=== PATIENT | female | born 1950 | race Two or more races ===

== ENCOUNTER 2020-07-19 11:27 | Emergency (ER) | payer MEDICARE, MEDICAID, SELFPAY ==
--- NOTE | ~2020-07-19 | CT_ITS ---
EXAMINATION: NONCONTRAST HEAD CT NONCONTRAST MAXILLOFACIAL CT NONCONTRAST CERVICAL SPINE CT INDICATION INFORMATION: Fall with head/facial injury. Swelling to the right periorbital area. COMPARISON: None TECHNIQUE: Separate noncontrast CT examinations of the head, maxillofacial bones, and cervical spine were performed. Coronal and sagittal images were created for each examination at the technologist workstation. This CT examination was performed using dose optimization techniques as appropriate, variously including the following: *Automated exposure control *Adjustment of mA and/or kV according to patient size (this includes techniques or standardized protocols for targeted exams where dose is matched to indication/reason for exam; i.e. extremities or head) *Use of iterative reconstruction technique DLP: 1381 mGy-cm FINDINGS: Head: There is no evidence of acute intracranial hemorrhage or territorial infarction. No abnormal mass effect or midline shift is seen. Duff to white matter differentiation is well preserved. No extra-axial fluid collections are identified. No hydrocephalus. No significant volume loss. There is no abnormal attenuation within the brain parenchyma. No acute soft tissue abnormality. Hyperostosis frontalis interna. No calvarial fracture. The mastoid air cells are well aerated. Maxillofacial: Mild right periorbital soft tissue swelling. No acute maxillofacial fractures are seen. The pterygoid plates are intact. The lamina papyracea are intact. The zygomatic arches are intact. The orbital rims are intact. The frontal, maxillary, ethmoid, and sphenoid sinuses are well aerated. The uncinate process is normal bilaterally. The infundibula and middle meati are patent. The nasal septum deviates to the left. The mandibular heads are well-seated in the condylar fossa. Degenerative changes of both temporomandibular joints. The orbits demonstrate a normal appearance bilaterally. The globes are intact, and there are no suspicious findings to suggest retrobulbar hemorrhage. Cervical spine: There is anatomic alignment of the vertebral bodies and posterior elements. The atlantoaxial and atlantooccipital articulations are intact. Vertebral body heights are maintained. There is multilevel intervertebral disc space narrowing with endplate osteophyte formation and facet arthropathy. No evidence of acute fracture. No prevertebral soft tissue swelling. Visualized portions of the lung apices are unremarkable. The thyroid gland is unremarkable. CT/CT cervical spine wo IV con IMPRESSION: 1. No acute intracranial finding. 2. No acute cervical spine fracture. Mild degenerative change. 3. Right periorbital soft tissue swelling. No maxillofacial fracture.
[2020-07-19 12:01] VITALS: BP 148/77; PULSE 84; RESP 18; TEMP 37; O2SAT 99; BMI 29.1
--- NOTE | 2020-07-19 15:27 | ED_ITS ---
HPI - Fall General Chief Complaint: Fall Stated Complaint: FALL Time Seen by Provider: 07/19/20 13:41 Source: patient Mode of arrival: ambulatory Limitations: no limitations History of Present Illness complaint: fall Onset (ago): day(s) (Two days ago) Fall from: standing (While walking tripped on the uneven pavement) Fall witnessed: no Place fall occurred: street Loss of consciousness: none Prolonged down time: no Symptoms prior to fall: none Context: tripped/slipped Location of injury: head and face Related Data Home Medications Medication Instructions Recorded Confirmed evolocumab 140 mg/mL subcutaneous 140 mg SUBCUT Q2W 05/31/20 05/31/20 pen injector Previous Rx's Medication Instructions Recorded atorvastatin 80 mg tablet 80 mg PO BEDTIME 90 Days #90 tab 04/25/20 omeprazole 20 mg capsule,delayed 20 mg PO DAILY 90 Days #90 cap 04/25/20 release pioglitazone 30 mg tablet 30 mg PO DAILY 90 Days #90 tab 04/25/20 trazodone 50 mg tablet 50 mg PO BEDTIME PRN 90 Days #90 04/25/20 tab acetaminophen 500 mg tablet 500 mg PO Q6H PRN 30 Days #120 tab 05/31/20 oxycodone 5 mg PO BID PRN #10 tab 07/19/20 Allergies Allergy/AdvReac Type Severity Reaction Status Date / Time No Known Allergies Allergy Verified 07/19/20 12:01 Review of Systems Review of Systems: Constitutional : No changes in activity, No lethargy, No recent prior head injury, No agitation, No increased fussiness ENT/Mouth : No Ear Pain, No Nasal discharge/drainage Eyes: No Eye Pain, No Swelling, No Redness, No Foreign Body, No Vision Changes Cardiovascular : No Chest Pain, No SOB Respiratory : No Cough Gastrointestinal : No Nausea, No Vomiting, No abdominal Pain Genitourinary : No Dysuria, No Urinary Frequency, No Urinary Incontinence, No Urgency, No Flank Pain Musculoskeletal : +facial pain, No neck stiffness, No back pain/injury, No neck pain Skin : No lacerations Neuro : No unsteady gait, No Paresthesias, No Loss of Consciousness, No altered mental status, No Headache Yes all other systems are reviewed and are negative PMFSH Past Medical History Attestation statement: The following information was validated with the patient. Medical History Diabetes mellitus Familial hyperlipidemia GERD (gastroesophageal reflux disease) Insomnia Polyarthralgia Surgical History History of shoulder surgery History of tubal ligation Family History Family History Father No problems noted. Mother Diabetes Brother Diabetes Throat cancer Social History Social History Alcohol intake: never Smoking Status: Never smoker Advance Directives: No Advance Directives Information Provided: No Physical Exam Vital Signs: Vital Signs: Last Vital Signs Temp 98.6 F 07/19/20 12:01 Pulse 84 07/19/20 12:01 Resp 18 07/19/20 12:01 BP 148/77 H 07/19/20 12:01 Pulse Ox 99 07/19/20 12:01 Body Mass Index 29.1 Vital signs have been reviewed as normal and appeared to be correct. Blood pressure normal. Heart rate normal. Respiration rate normal. Temperature normal. Oxygen saturation normal. Appearance: Alert. Oriented X3. No acute distress. Head: Normal external exam. Normocephalic. Atraumatic. Able to rotate head bilaterally. No Shepard signs or raccoon eyes noted. Eyes: PERRLA. EOMI. No nystagmus noted. Right conjunctiva subconjunctival hemorrhage noted. Patient mild soft tissue swelling to right upper eyelid and right lower eyelid. Left Conjunctiva and sclera normal. Eyelids of the left eye are normal. Corneal reflex normal. ENT: EAC normal. TM's Normal. Hearing normal. Pharynx normal. Uvula midline. tongue midline. Moist mucous membranes. No trismus noted. No drooling noted. No muffled voice noted. No nystagmus noted. Neck: Normal inspection. Neck supple. FROM. No adenopathy. Trachea midline. Thyroid Normal. No meningeal signs. No neck mass noted. CVS: Normal heart rate and rhythm. Heart sound normal. No murmurs noted. Pulses normal throughout. Respiratory: No respiratory distress. Painless inspiration. Breath sounds normal. No wheezes/rales/rhonchi noted. Chest nontender. No accessory muscle usage noted or decreased air movement noted. Abdomen: Soft and nontender. Bowel sounds normal in all 4 quadrants. No distention noted. No organomegaly noted. No visible injury noted. Back: No CVA tenderness. Full range of motion noted. Skin: Skin warm and dry. Normal skin color. Normal skin turgor. No rashes/lesions/lacerations noted. Extremities: No lower extremity edema. Extremities exhibit normal range of motion. Extremities nontender. Able to shrug shoulders bilaterally and keep up against resistance. Neuro: Oriented X 3. No motor deficit. No sensory deficit. Reflexes normal. Moving all extremities. No focal motor deficits. Cranial nerves II-XI intact bilaterally. Facial strength normal. Normal cognition. Speech normal. Gait normal. Strength 5/5 throughout. Course Course Course Narrative: 69-year-old female presenting to the ED after she had a mechanical fall where she tripped and fell on the uneven pavement on Sunday with head injury no loss of conscious is not on any blood thinners with injuries to her head and right periorbital area. Patient is neuro intact. No focal neuro deficits noted. Denies any preceding symptoms prior to the fall. Imaging obtained and revealed periorbital soft tissue swelling otherwise no fractures or any other acute processes of the brain/cervical spine and facial bones. Will DC home with symptomatic treatment along with instructions return if any new or worsening symptoms follow-up with primary care provider. Patient understands agrees the plan. MDM - Fall Differential Diagnosis Differential diagnosis: Likely syncope, dislocation, fracture, compression fracture and concussion without loss of consciousness Medical Records Attestation: I reviewed the patient's medical records. Lab Data Attestation: I reviewed the patient's lab results. Imaging Data CT scan brain/cervical spine/facial bone: Attestation: I personally reviewed and interpreted this imaging study as follows: Radiologist's impression: FINDINGS: Head: There is no evidence of acute intracranial hemorrhage or territorial infarction. No abnormal mass effect or midline shift is seen. Duff to white matter differentiation is well preserved. No extra-axial fluid collections are identified. No hydrocephalus. No significant volume loss. There is no abnormal attenuation within the brain parenchyma. No acute soft tissue abnormality. Hyperostosis frontalis interna. No calvarial fracture. The mastoid air cells are well aerated. Maxillofacial: Mild right periorbital soft tissue swelling. No acute maxillofacial fractures are seen. The pterygoid plates are intact. The lamina papyracea are intact. The zygomatic arches are intact. The orbital rims are intact. The frontal, maxillary, ethmoid, and sphenoid sinuses are well aerated. The uncinate process is normal bilaterally. The infundibula and middle meati are patent. The nasal septum deviates to the left. The mandibular heads are well-seated in the condylar fossa. Degenerative changes of both temporomandibular joints. The orbits demonstrate a normal appearance bilaterally. The globes are intact, and there are no suspicious findings to suggest retrobulbar hemorrhage. Cervical spine: There is anatomic alignment of the vertebral bodies and posterior elements. The atlantoaxial and atlantooccipital articulations are intact. Vertebral body heights are maintained. There is multilevel intervertebral disc space narrowing with endplate osteophyte formation and facet arthropathy. No evidence of acute fracture. No prevertebral soft tissue swelling. Visualized portions of the lung apices are unremarkable. The thyroid gland is unremarkable. CT/CT facial bones wo con IMPRESSION: 1. No acute intracranial finding. 2. No acute cervical spine fracture. Mild degenerative change. 3. Right periorbital soft tissue swelling. No maxillofacial fracture. Discharge Plan Discharge Clinical Impression: Fall, Periorbital ecchymosis of right eye, Subconjunctival hemorrhage of right eye, Head injury Patient Disposition: Home, Self-Care Instructions: Subconjunctival Hemorrhage (ED), Fall Prevention for Older Adults (ED) Prescriptions: New oxycodone 5 mg tablet 5 mg PO BID PRN (Reason: pain) Qty: 10 RF: 0 No Action trazodone 50 mg tablet 50 mg PO BEDTIME PRN (Reason: sleep) 90 Days Qty: 90 RF: 1 pioglitazone 30 mg tablet 30 mg PO DAILY 90 Days Qty: 90 RF: 3 omeprazole 20 mg capsule,delayed release(DR/EC) 20 mg PO DAILY 90 Days Qty: 90 RF: 3 atorvastatin 80 mg tablet 80 mg PO BEDTIME 90 Days Qty: 90 RF: 3 Repatha SureClick 140 mg/mL pen injector 140 mg subcut Q2W RF: 0 acetaminophen 500 mg tablet 500 mg PO Q6H PRN (Reason: fever or pain) 30 Days Qty: 120 RF: 6 Referrals: Madhavi Zuniga MD [Primary Care Provider] - 2 days Print Language: Tamazight
== END 2020-07-19 16:04 | disposition home or self-care (01) ==
PROVIDERS: Emergency Provider Emergency Medicine; PCP Internal Medicine
DX: H11.31 Conjunctival hemorrhage, right eye (principal); S09.90XA Unspecified injury of head, initial encounter; S05.11XA Contusion of eyeball and orbital tissues, right eye, initial encounter; W01.198A Fall on same level from slipping, tripping and stumbling with subsequent striking against other object, initial encounter; E11.9 Type 2 diabetes mellitus without complications; Y93.01 Activity, walking, marching and hiking; Y92.480 Sidewalk as the place of occurrence of the external cause; Y99.9 Unspecified external cause status; Z79.4 Long term (current) use of insulin
CPT/HCPCS: 70450; 70486; 72125; 99283; 99284

== ENCOUNTER 2020-08-06 08:47 | Outpatient (REF) | payer MEDICARE, MEDICAID, SELFPAY ==
--- NOTE | ~2020-08-06 | MM_ITS ---
EXAMINATION: BONE DENSITOMETRY CLINICAL INDICATION: Menopause. COMPARISON: This is the patient's baseline examination. TECHNIQUE: Using a [employer] DXA System (software version: 13.1) manufactured by [employer], dual-energy x-ray absorptiometry was performed of the lumbar spine and left hip. The images are of good technical quality. Summary results are attached. FINDINGS: AP SPINE L1-L4: BMD 0.948 g/cm2, Z-score -0.7, T-score -1.9, osteopenia. LEFT FEMUR, NECK: BMD 0.804 g/cm2, Z-score -0.4, T-score -1.7, osteopenia. LEFT FEMUR, TOTAL: BMD 0.943 g/cm2, Z-score 0.5, T-score -0.5, normal. IDENTIFIED RISK FACTORS: Early menopause, secondary osteoporosis. HISTORY OF FRACTURE: None listed. MEDICATIONS: None listed. MM/XR DEXA axial skeleton IMPRESSION: 1. DIAGNOSIS: Osteopenia based on the lowest T-score value of -1.9 in the lumbar spine applying World Health Organization criteria. 2. 10-YEAR FRACTURE RISK PREDICTION, FRAX: Major osteoporotic fracture (clinical spine, forearm, hip or shoulder) 5.5%. Hip fracture 0.8%. 3. Treatment Recommendations: NOF guidelines recommend consideration for treatment in postmenopausal women and men age 50 and older presenting with the following: -A hip or vertebral (clinical or morphometric) fracture. -T-score less than or equal to -2.5 at the femoral neck or spine after appropriate evaluation to exclude secondary causes. -Low bone mass at the hip or spine and a 10-year fracture probability by FRAX of greater than or equal to 3% for hip fracture or greater than or equal to 20% for major osteoporotic fracture based on the [place] adapted WHO algorithm. 4. Other Recommendations: All treatment decisions require clinical judgment and consideration of individual patient factors, including patient preferences, comorbidities, previous drug use, risk factors not captured in the FRAX model (e.g. frailty, falls, vitamin D deficiency, increased bone turnover, interval significant decline in bone density) and possible under or overestimation of fracture risk by FRAX. Additional medical evaluation for secondary cause of low bone mineral density may be appropriate. FUTURE SCAN RECOMMENDATION: People with diagnosed cases of osteoporosis or at high risk for fracture should have regular bone mineral density tests. For patients eligible for Medicare, routine testing is allowed once every 2 years. The testing frequency can be increased to one year for patients who have rapidly progressing disease, those who are receiving or discontinuing medical therapy to restore bone mass, or have additional risk factors.
== END 2020-08-06 08:48 | disposition home or self-care (01) ==
LOC: HO.MAMMO 08:47
PROVIDERS: PCP Internal Medicine; Visit Provider Internal Medicine
DX: Z13.820 Encounter for screening for osteoporosis (principal); Z78.0 Asymptomatic menopausal state
CPT/HCPCS: 77080

== ENCOUNTER 2020-11-24 08:51 | Outpatient (REF) | payer MEDICARE, MEDICAID, SELFPAY ==
[2020-11-24 10:29] LABS: Estimated Average Glucose 117 mg/dL; Hemoglobin A1c % 5.7 %
[2020-11-24 10:43] LABS: Alanine Aminotransferase 22 U/L (0-31); Albumin Level 3.9 g/dL (3.5-5.0); Alkaline Phosphatase 72 U/L (39-117); Anion Gap 12 (12-20); Aspartate Amino Transferase 20 U/L (5-31); Bilirubin Total 0.5 mg/dL (0.0-1.0); Blood Urea Nitrogen 11 mg/dL (9-16); Calcium 9.4 mg/dL (8.4-10.2); Carbon Dioxide 27 mmol/L (22-29); Chloride 107 mmol/L (96-108); Cholesterol 217 mg/dL; Estimated Glomerular Filt Rate > 60; Glucose Fasting 126 mg/dL (60-99); HDL Cholesterol 40 mg/dL; LDL Cholesterol Calculated 156 mg/dl; Potassium 3.7 mmol/L (3.3-5.1); Sodium 142 mmol/L (135-145); Total Protein 6.7 g/dL (6.5-8.0); Triglycerides 105 mg/dL
[2020-11-24 10:45] LABS: Creatinine Urine 161.85 mg/dL; Microalbum/Creatinine Ratio Ur 30.8 ug/mg cr
[2020-11-29 13:31] LABS: Vitamin D 25-OH, D2 <4 ng/mL; Vitamin D 25-OH, D3 32 ng/mL; Vitamin D 25-OH, Total 32 ng/mL (30-100)
== END 2020-11-24 08:52 | disposition home or self-care (01) ==
LOC: HO.LAB 08:51
PROVIDERS: PCP Internal Medicine; Visit Provider Internal Medicine
DX: E11.9 Type 2 diabetes mellitus without complications (principal); E78.5 Hyperlipidemia, unspecified; E55.9 Vitamin D deficiency, unspecified
CPT/HCPCS: 36415; 80053; 80061; 82043; 82306; 83036

== ENCOUNTER 2020-11-30 08:59 | Outpatient (REF) | payer MEDICARE, MEDICAID, SELFPAY ==
--- NOTE | ~2020-11-30 | XR_ITS ---
EXAMINATION: XR KNEE, LEFT CLINICAL INFORMATION: Left knee pain COMPARISON: None TECHNIQUE: Four views of the left knee. FINDINGS: There is no evidence of acute fracture or dislocation of the left knee. Left knee joint spaces are maintained. There is some marginal spurring about the lateral facet of the patella. Patella spurs at insertion of the quadriceps tendon are seen. No effusion. XR/XR knee LT 3V IMPRESSION: Mild degenerative change patellofemoral joint.
== END 2020-11-30 09:00 | disposition home or self-care (01) ==
LOC: HO.XRAY 08:59
PROVIDERS: PCP Internal Medicine; Visit Provider Internal Medicine
DX: M25.562 Pain in left knee (principal)
CPT/HCPCS: 73562

== ENCOUNTER 2021-03-14 07:48 | Outpatient (REF) | payer MEDICARE, MEDICAID, SELFPAY ==
[2021-03-14 09:22] LABS: Alanine Aminotransferase 95 U/L (0-31); Albumin Level 3.9 g/dL (3.5-5.0); Alkaline Phosphatase 94 U/L (39-117); Anion Gap 9 (12-20); Aspartate Amino Transferase 69 U/L (5-31); Bilirubin Total 0.6 mg/dL (0.0-1.0); Blood Urea Nitrogen 11 mg/dL (9-16); Calcium 8.7 mg/dL (8.4-10.2); Carbon Dioxide 28 mmol/L (22-29); Chloride 106 mmol/L (96-108); Cholesterol 130 mg/dL; Estimated Glomerular Filt Rate > 60; Glucose Fasting 135 mg/dL (60-99); HDL Cholesterol 41 mg/dL; LDL Cholesterol Calculated 73 mg/dl; Potassium 3.7 mmol/L (3.3-5.1); Sodium 139 mmol/L (135-145); Total Protein 6.6 g/dL (6.5-8.0); Triglycerides 83 mg/dL
[2021-03-14 10:54] LABS: Creatinine Urine 140.83 mg/dL
== END 2021-03-14 07:49 | disposition home or self-care (01) ==
LOC: HO.LAB 07:48
PROVIDERS: PCP Internal Medicine; Visit Provider Internal Medicine
DX: E11.9 Type 2 diabetes mellitus without complications (principal); E78.5 Hyperlipidemia, unspecified
CPT/HCPCS: 36415; 80053; 80061; 82043

== ENCOUNTER 2021-04-22 09:20 | Outpatient (REF) | payer MEDICARE, MEDICAID, SELFPAY | END 2021-04-22 09:21 | disposition home or self-care (01) | LOC: HO.LAB 09:20 | PROVIDERS: Visit Provider Internal Medicine | DX: Z20.822 Contact with and (suspected) exposure to COVID-19 (principal) | CPT/HCPCS: C9803; U0003; U0005 ==

== ENCOUNTER 2021-08-08 07:30 | Outpatient (REF) | payer MEDICARE, MEDICAID, SELFPAY ==
[2021-08-08 08:45] LABS: Alanine Aminotransferase 19 U/L (0-31); Albumin Level 4.1 g/dL (3.5-5.0); Alkaline Phosphatase 76 U/L (39-117); Anion Gap 10 (12-20); Aspartate Amino Transferase 19 U/L (5-31); Bilirubin Total 0.5 mg/dL (0.0-1.0); Blood Urea Nitrogen 17 mg/dL (9-16); Calcium 9.6 mg/dL (8.4-10.2); Carbon Dioxide 28 mmol/L (22-29); Chloride 105 mmol/L (96-108); Cholesterol 145 mg/dL; Estimated Glomerular Filt Rate > 60; Glucose Fasting 107 mg/dL (60-99); HDL Cholesterol 42 mg/dL; LDL Cholesterol Calculated 82 mg/dl; Sodium 139 mmol/L (135-145); Total Protein 7.1 g/dL (6.5-8.0); Triglycerides 109 mg/dL
[2021-08-08 09:19] LABS: Creatinine Urine 144.12 mg/dL; Microalbum/Creatinine Ratio Ur 10.4 ug/mg cr
== END 2021-08-08 07:31 | disposition home or self-care (01) ==
LOC: HO.LAB 07:30
PROVIDERS: PCP Internal Medicine; Visit Provider Internal Medicine
DX: E11.9 Type 2 diabetes mellitus without complications (principal); E78.5 Hyperlipidemia, unspecified
CPT/HCPCS: 36415; 80053; 80061; 82043

== ENCOUNTER 2021-12-05 07:58 | Outpatient (REF) | payer MEDICARE, MEDICAID, SELFPAY ==
[2021-12-05 08:59] LABS: Alanine Aminotransferase 18 U/L (0-31); Albumin Level 3.9 g/dL (3.5-5.0); Alkaline Phosphatase 68 U/L (39-117); Anion Gap 8 (12-20); Aspartate Amino Transferase 17 U/L (5-31); Bilirubin Total 0.4 mg/dL (0.0-1.0); Blood Urea Nitrogen 15 mg/dL (9-16); Calcium 8.9 mg/dL (8.4-10.2); Carbon Dioxide 27 mmol/L (22-29); Chloride 108 mmol/L (96-108); Cholesterol 131 mg/dL; Estimated Glomerular Filt Rate > 60; Glucose Fasting 115 mg/dL (60-99); HDL Cholesterol 40 mg/dL; LDL Cholesterol Calculated 70 mg/dl; Sodium 139 mmol/L (135-145); Total Protein 6.7 g/dL (6.5-8.0); Triglycerides 106 mg/dL
[2021-12-05 09:35] LABS: Creatinine Urine 147.62 mg/dL; Microalbum/Creatinine Ratio Ur 7.4 ug/mg cr
== END 2021-12-05 07:59 | disposition home or self-care (01) ==
LOC: HO.LAB 07:58
PROVIDERS: PCP Internal Medicine; Visit Provider Internal Medicine
DX: E11.9 Type 2 diabetes mellitus without complications (principal); E78.5 Hyperlipidemia, unspecified; G43.909 Migraine, unspecified, not intractable, without status migrainosus
CPT/HCPCS: 36415; 80053; 80061; 82043

== ENCOUNTER 2022-04-03 08:02 | Outpatient (REF) | payer OTHER, SELFPAY ==
[2022-04-03 09:20] LABS: Creatinine Urine 126.49 mg/dL; Microalbum/Creatinine Ratio Ur 29.2 ug/mg cr
[2022-04-03 09:45] LABS: Alanine Aminotransferase 38 U/L (0-31); Alkaline Phosphatase 68 U/L (39-117); Anion Gap 10 (12-20); Aspartate Amino Transferase 29 U/L (5-31); Bilirubin Total 0.7 mg/dL (0.0-1.0); Blood Urea Nitrogen 22 mg/dL (9-16); Calcium 9.4 mg/dL (8.4-10.2); Carbon Dioxide 28 mmol/L (22-29); Chloride 105 mmol/L (96-108); Cholesterol 154 mg/dL; Estimated Glomerular Filt Rate > 60; Glucose Fasting 109 mg/dL (60-99); HDL Cholesterol 42 mg/dL; LDL Cholesterol Calculated 87 mg/dl; Potassium 4.1 mmol/L (3.3-5.1); Sodium 139 mmol/L (135-145); Triglycerides 125 mg/dL; Vitamin D 25-OH Total 38.7 ng/mL (>30)
== END 2022-04-03 08:03 | disposition home or self-care (01) ==
LOC: HO.LAB 08:02
PROVIDERS: PCP Internal Medicine; Visit Provider Internal Medicine
DX: I10 Essential (primary) hypertension (principal); E11.9 Type 2 diabetes mellitus without complications; E55.9 Vitamin D deficiency, unspecified; M85.80 Other specified disorders of bone density and structure, unspecified site; E78.5 Hyperlipidemia, unspecified
CPT/HCPCS: 36415; 80053; 80061; 82043; 82306

== ENCOUNTER 2022-07-24 08:18 | Outpatient (REF) | payer OTHER, SELFPAY ==
--- NOTE | ~2022-07-24 | XR_ITS ---
EXAMINATION: XR KNEE, LEFT CLINICAL INFORMATION: 71-year-old female patient with pain in the left knee. COMPARISON: X-ray of the left knee on 11/30/2020. TECHNIQUE: AP and lateral views of the left knee. FINDINGS: Bones and soft tissues are normal. No fracture or joint effusion. Alignment is anatomic. Joint spaces are well maintained. A small bony spur arises from the articular surface of the lateral femoral condyle. No abnormal soft tissue calcification. Again, an enthesophyte arises from the patella at the quadriceps insertion site. XR/XR knee LT 2V IMPRESSION: No acute bone or joint abnormalities. Small bony spur.
[2022-07-24 09:13] LABS: Alanine Aminotransferase 19 U/L (0-31); Albumin Level 3.9 g/dL (3.5-5.0); Alkaline Phosphatase 68 U/L (39-117); Anion Gap 10 (12-20); Aspartate Amino Transferase 24 U/L (5-31); Blood Urea Nitrogen 11 mg/dL (9-16); Calcium 8.8 mg/dL (8.4-10.2); Carbon Dioxide 27 mmol/L (22-29); Chloride 107 mmol/L (96-108); Cholesterol 148 mg/dL; Estimated Glomerular Filt Rate > 60; Glucose Fasting 113 mg/dL (60-99); HDL Cholesterol 33 mg/dL; LDL Cholesterol Calculated 91 mg/dl; Potassium 4.1 mmol/L (3.3-5.1); Sodium 140 mmol/L (135-145); Total Protein 6.6 g/dL (6.5-8.0); Triglycerides 123 mg/dL
[2022-07-24 09:31] LABS: Vitamin D 25-OH Total 28.5 ng/mL (>30)
[2022-07-24 10:22] LABS: Creatinine Urine 141.92 mg/dL
== END 2022-07-24 08:19 | disposition home or self-care (01) ==
LOC: HO.XRAY 08:18
PROVIDERS: PCP Internal Medicine; Visit Provider Internal Medicine
DX: E78.5 Hyperlipidemia, unspecified (principal); E11.9 Type 2 diabetes mellitus without complications; E55.9 Vitamin D deficiency, unspecified; M25.562 Pain in left knee; I10 Essential (primary) hypertension
CPT/HCPCS: 36415; 73560; 80053; 80061; 82043; 82306

== ENCOUNTER 2022-08-23 08:03 | Outpatient (REF) | payer MEDICARE, SELFPAY ==
--- NOTE | ~2022-08-23 | MM_ITS ---
EXAMINATION: BONE DENSITOMETRY CLINICAL INDICATION: Unspecified menopausal and perimenopausal disorder. COMPARISON: Baseline BD dated 08/06/2020. TECHNIQUE: Using a [employer] DXA System (software version: 13.1) manufactured by [employer], dual-energy x-ray absorptiometry was performed of the lumbar spine and left hip. The images are of good technical quality. Summary results are attached. FINDINGS: AP SPINE L1-L4: Current: BMD 0.980 g/cm2, Z-score -0.5, T-score -1.7, osteopenia, 3.4% increase from baseline (<5% change is not significant). Baseline: BMD 0.948 g/cm2. LEFT FEMUR, NECK: Current: BMD 0.751 g/cm2, Z-score -0.7, T-score -2.1, osteopenia. Baseline: BMD 0.804 g/cm2. LEFT FEMUR, TOTAL: Current: BMD 0.839 g/cm2, Z-score -0.2, T-score -1.3, osteopenia, 11.0% decrease from baseline (<5% change is not significant). Baseline: BMD 0.943 g/cm2. IDENTIFIED RISK FACTORS: Early menopause, secondary osteoporosis. HISTORY OF FRACTURE: None listed. MEDICATIONS: Calcium supplements or multivitamin, vitamin D. MM/XR DEXA axial skeleton IMPRESSION: 1. DIAGNOSIS: Osteopenia based on the lowest T-score value of -2.1 in the femoral neck applying World Health Organization criteria. 2. 10-YEAR FRACTURE RISK PREDICTION, FRAX: Major osteoporotic fracture (clinical spine, forearm, hip or shoulder) 6.6%. Hip fracture 1.3%. 3. Treatment Recommendations: NOF guidelines recommend consideration for treatment in postmenopausal women and men age 50 and older presenting with the following: -A hip or vertebral (clinical or morphometric) fracture. -T-score less than or equal to -2.5 at the femoral neck or spine after appropriate evaluation to exclude secondary causes. -Low bone mass at the hip or spine and a 10-year fracture probability by FRAX of greater than or equal to 3% for hip fracture or greater than or equal to 20% for major osteoporotic fracture based on the [place] adapted WHO algorithm. 4. Other Recommendations: All treatment decisions require clinical judgment and consideration of individual patient factors, including patient preferences, comorbidities, previous drug use, risk factors not captured in the FRAX model (e.g. frailty, falls, vitamin D deficiency, increased bone turnover, interval significant decline in bone density) and possible under or overestimation of fracture risk by FRAX. Additional medical evaluation for secondary cause of low bone mineral density may be appropriate. FUTURE SCAN RECOMMENDATION: People with diagnosed cases of osteoporosis or at high risk for fracture should have regular bone mineral density tests. For patients eligible for Medicare, routine testing is allowed once every 2 years. The testing frequency can be increased to one year for patients who have rapidly progressing disease, those who are receiving or discontinuing medical therapy to restore bone mass, or have additional risk factors.
== END 2022-08-23 08:04 | disposition home or self-care (01) ==
LOC: HO.MAMMO 08:03
PROVIDERS: PCP Internal Medicine; Visit Provider Internal Medicine
DX: Z13.820 Encounter for screening for osteoporosis (principal); N95.9 Unspecified menopausal and perimenopausal disorder
CPT/HCPCS: 77080

== ENCOUNTER 2022-11-27 08:57 | Outpatient (REF) | payer MEDICARE, SELFPAY ==
[2022-11-27 10:33] LABS: Creatinine Urine 134.61 mg/dL; Microalbum/Creatinine Ratio Ur 11.8 ug/mg cr
[2022-11-27 10:41] LABS: Alanine Aminotransferase 18 U/L (0-31); Albumin Level 3.8 g/dL (3.5-5.0); Alkaline Phosphatase 60 U/L (39-117); Anion Gap 10 (12-20); Aspartate Amino Transferase 21 U/L (5-31); Bilirubin Total 0.6 mg/dL (0.0-1.0); Blood Urea Nitrogen 14 mg/dL (9-16); Calcium 9.4 mg/dL (8.4-10.2); Carbon Dioxide 28 mmol/L (22-29); Chloride 105 mmol/L (96-108); Cholesterol 119 mg/dL; Estimated Glomerular Filt Rate > 60; Glucose Fasting 97 mg/dL (60-99); HDL Cholesterol 40 mg/dL; LDL Cholesterol Calculated 62 mg/dl; Sodium 139 mmol/L (135-145); Total Protein 6.8 g/dL (6.5-8.0); Triglycerides 86 mg/dL
[2022-11-27 10:57] LABS: Vitamin D 25-OH Total 37.4 ng/mL (>30)
== END 2022-11-27 08:58 | disposition home or self-care (01) ==
LOC: HO.LAB 08:57
PROVIDERS: PCP Internal Medicine; Visit Provider Internal Medicine
DX: E78.49 Other hyperlipidemia (principal); E11.9 Type 2 diabetes mellitus without complications; E55.9 Vitamin D deficiency, unspecified; E78.5 Hyperlipidemia, unspecified
CPT/HCPCS: 36415; 80053; 80061; 82043; 82306

== ENCOUNTER 2022-12-18 10:28 | Outpatient (AMB) | payer MEDICARE, SELFPAY ==
[2022-12-18 10:37] VITALS: BP 118/66; PULSE 76; O2SAT 99; BMI 29.2
--- NOTE | 2022-12-18 10:37 | A.OFFPC_ITS ---
Vital Signs 12/18/22 10:37 Height 5 ft 5 in Weight 175 lb 4 oz BMI 29.2 BP 118/66 Blood Pressure Location Lt brachial Position Sitting Pulse 76 Pulse Source Pulse Oximeter Pulse Oximetry (%) 99 Oxygen Delivery Method Room Air Intake Visit Reasons: DM Lawn Care Worker Required: No Accompanied by: Self / Same As Patient Allergies No Known Allergies Allergy (Verified 12/18/22 11:04) Medication List - Last Reconciled 12/18/22 by Madhavi Mujica MD atorvastatin 80 mg PO BEDTIME 90 days blood-glucose meter (FreeStyle [place] Lite kit) As directed calcium carbonate-vitamin D3 600 mg-10 mcg (400 unit) 1 tab PO BID 90 days ezetimibe 10 mg PO DAILY 90 days gabapentin 100 mg PO BEDTIME 30 days ibuprofen 800 mg PO Q8H 90 days lisinopril 10 mg PO DAILY 90 days omeprazole 20 mg PO DAILY 90 days pioglitazone 45 mg PO DAILY 90 days sumatriptan succinate 25 mg PO Q2-4H PRN 30 days trazodone 50 mg PO BEDTIME PRN 90 days Tobacco use date assessed: 12/18/22 Fall risk assessment: No Falls in past year Last assessed Fall Risk: 12/18/22 Dental Screening Dental Screen Date: 12/18/22 Did you have a dental visit in the last 12 months?: No Did you have a dental problem in the last 6 months where you did not have access to dental care?: No Was dental information given to patient?: Patient has dentist HPI HPI Comments History of Present Illness Details This is a 72-year-old female with diabetes mellitus type 2, hypertension, familial hyperlipidemia and insomnia that comes today for follow- up on her conditions. A1c within goal. LDL within goal. Blood pressure well control. Insomnia stable with trazodone as needed. She denies any chest pain or shortness of breath. Compliant with medications. [facility] Medical History Diabetes mellitus Essential hypertension Familial hyperlipidemia GERD (gastroesophageal reflux disease) Insomnia Left knee pain Migraines Osteopenia Polyarthralgia Postmenopausal Surgical History History of shoulder surgery History of tubal ligation Family History Father No problems noted. Mother Diabetes Brother Diabetes Throat cancer Social History Housing: Apartment Alcohol intake: never Patient Tobacco Use Status: Never used Tobacco e-Cigarette/Vaping Use: Never Used Second Hand Smoke Exposure: No service: No Current occupational status: disabled Current occupational exposures/hazards: No Cognitive needs: No Hearing needs: No Vision needs: Yes Questionnaire PHQ-9 Over the last 2 weeks, how often have you been bothered by any of the following problems? 1. Little interest or pleasure in doing things: not at all 2. Feeling down, depressed, or hopeless: not at all 3. Trouble falling or staying asleep, or sleeping too much: not at all 4. Feeling tired or having little energy: not at all 5. Poor appetite or overeating: not at all 6. Feeling bad about yourself - or that you are a failure or have let yourself or your family down: not at all 7. Trouble concentrating on things, such as reading the newspaper or watching television: not at all 8. Moving or speaking so slowly that other people could have noticed. Or the opposite - being so fidgety or restless that you have been moving around a lot more than usual: not at all 9. Thoughts that you would be better off or of hurting yourself in some way: not at all Total score: 0 Depression Screening Interpretation: Negative 41505 - PHQ-9 Billing: Yes Source: Developed by Drs. Nahid Garcia, Alexia Pollock, Flavio Torrez and colleagues, with an educational em from [employer]. Thrive Questionnaire Date Thrive assessed: 12/18/22 I am a: Patient What is your living situation today?: I have a steady place to live Within the past 12 months, did the food you bought not last and you didn't have the money to get more?: Never true Within the past 12 months, did you worry whether your food would run out before you got money to buy more?: Never true Do you have trouble paying for medicines?: No Do you have trouble getting transportation to medical appointments?: No Do you have trouble paying your heating and electricity bill?: No Do you have trouble taking care of your child, family member or friend?: No Do you have trouble with day-to-day activities such as bathing, preparing meals, shopping, managing finances, etc.?: No Are you currently unemployed and looking for a job?: No Are you interested in more education?: No Please select the resources that you would like help with: None Currently or been in a relationship where the following occur: no concerns reported AUDIT C Alcohol Use Questionnaire (AUDIT-C) 1. How often do you have a drink containing alcohol?: Never Total Score: 0 SUSAN-7 AMB Questionnaire SUSAN-7 Date SUSAN - 7 assessed: 12/18/22 Feeling nervous, anxious, or on edge: 0 = Not at all Not being able to stop or control worryin = Not at all Worrying too much about different things: 0 = Not at all Trouble relaxin = Not at all Being so restless that it is hard to sit still: 0 = Not at all Becoming easily annoyed or irritable: 0 = Not at all Feeling afraid as if something awful might happen: 0 = Not at all Total SUSAN-7 score (0-4 normal; 5-9 mild; 10-14 moderate; 15-21 severe): 0 Source: Developed by Drs. Nahid Garcia, Alexia Pollock, Flavio Torrez and colleagues, with an educational em from [employer]. SUSAN-7 Assessment Billing SUSAN-7 Assessment Tool: SUSAN-7 Assessment 01994 Review of Systems Const All systems reviewed & are unremarkable except as noted in HPI and below Eyes Reports no additional complaints, Denies change in vision and Denies other visual disturbances Card Denies chest pain at rest, Denies chest pain with activity, Denies edema, Denies irregular heart rhythm, Denies claudication, Denies dyspnea, Denies dyspnea on exertion, Denies orthopnea, Denies paroxysmal nocturnal dyspnea and Denies slow heart rate Resp Denies cough, Denies dyspnea and Denies dyspnea on exertion GI Denies abdominal pain, Denies change in bowel habits, Denies excessive flatus, Denies nausea and Denies vomiting Denies urinary incontinence, Denies urinary hesitancy and Denies urinary urgency Musc Denies abnormal gait, Denies atrophy, Denies deformity and Denies limited range of motion Skin/Breast Denies bleeding lesions, Denies changing lesions and Denies rash Neuro Denies abnormal gait and Denies lack of coordination Physical exam (Primary Care) Vital Signs: Last Vital Signs Pulse 76 12/18/22 10:37 BP 118/66 12/18/22 10:37 Pulse Ox 99 12/18/22 10:37 Oxygen Delivery Method Room Air 12/18/22 10:37 BMI result Body Mass Index 29.2 Tobacco/Smoking Status: Tobacco use Status Tobacco use date assessed 12/18/22 12/18/22 10:41 Patient Tobacco Use Status Never used Tobacco 12/18/22 10:41 e-Cigarette/Vaping Use Never Used 12/18/22 10:41 PHQ-9: PHQ-9 Score PHQ-9: Total score 0 12/18/22 11:06 Depression Screening Interpretation: Negative Thrive Assessment: Date of Thrive Assessment Date Thrive assessed 12/18/22 12/18/22 10:41 Currently or been in a relationship where the following occur: no concerns reported Eyes General: appearance normal, both eyes and all related structures Eyelids: Yes eyelids normal Conjunctivae: conjunctivae normal Neck Neck: Yes normal visual inspection and Yes supple Resp Effort & Inspection: normal respiratory effort Auscultation: clear to auscultation bilaterally Cardio Jugular venous distension: no JVD Rate: regular rate Rhythm: regular rhythm Heart sounds: S1 normal heart sound present and S2 normal heart sound present Extrem General: Yes full ROM Results AMB Hemoglobin A1c AMB Hemoglobin A1c 5.7 % Last Edit by Thelma Mclean on 12/18/22 10:57 Results Reviewed Results Reviewed: Laboratory Last Values Hgb A1c (Clinic) 5.7 % (4.0-6.0) 12/18/22 10:56 Assessment and Plan Assessment & Plan (1) Essential hypertension: Code(s): I10 - Essential (primary) hypertension Plan: Continue lisinopril. Blood pressure goal is equal or less than 130/80. (2) Diabetes mellitus: Code(s): E11.9 - Type 2 diabetes mellitus without complications Qualifiers: Diabetes mellitus type: type 2 Diabetes mellitus intermediate card tender insulin use: without intermediate card tender use Diabetes mellitus complication status: without complication Qualified Code(s): E11.9 - Type 2 diabetes mellitus without complications Plan: Continue Actos. A1c goal is equal or less than 7%. (3) Familial hyperlipidemia: Code(s): E78.49 - Other hyperlipidemia Plan: Continue statins and ezetimibe. LDL goal is less than 70. (4) Insomnia: Code(s): G47.00 - Insomnia, unspecified Qualifiers: Insomnia type: unspecified Qualified Code(s): G47.00 - Insomnia, unspecified Plan: Continue trazodone as needed. Orders: Orders Comprehensive [place]. Panel Fast 4 Months I10 - Essential (primary) hypertension Lipid Panel 4 Months E78.5 - Hyperlipidemia, unspecified Vitamin D 25-OH Total 4 Months E55.9 - Vitamin D deficiency, unspecified Microalbumin, Random (w Creat) 4 Months E11.9 - Type 2 diabetes mellitus without complications Coding Level of Care Code Est Pt Level 4 (29345) Diagnoses Essential hypertension I10 Diabetes mellitus E11.9 Diabetes mellitus type: type 2 Diabetes mellitus residential insulin use: without intermediate card tender use Diabetes mellitus complication status: without complication Familial hyperlipidemia E78.49 Insomnia G47.00 Insomnia type: unspecified Additional Codes SUSAN-7 Assessment Billing - SUSAN-7 Assessment Tool: SUSAN-7 Assessment 67838 ([id number]) Time Spent (min) 23
== END 2022-12-18 11:12 | disposition home or self-care (01) ==
PROVIDERS: Visit Provider Internal Medicine
DX: I10 Essential (primary) hypertension (principal); E11.9 Type 2 diabetes mellitus without complications; E78.49 Other hyperlipidemia; G47.00 Insomnia, unspecified
CPT/HCPCS: 99214

== ENCOUNTER 2023-03-27 08:01 | Outpatient (REF) | payer MEDICARE, SELFPAY ==
[2023-03-27 09:22] LABS: Alanine Aminotransferase 21 U/L (0-31); Albumin Level 3.8 g/dL (3.5-5.0); Alkaline Phosphatase 86 U/L (39-117); Anion Gap 9 (12-20); Aspartate Amino Transferase 22 U/L (5-31); Bilirubin Total 0.6 mg/dL (0.0-1.0); Blood Urea Nitrogen 14 mg/dL (9-16); Calcium 9.3 mg/dL (8.4-10.2); Carbon Dioxide 28 mmol/L (22-29); Chloride 108 mmol/L (96-108); Cholesterol 112 mg/dL (<200); Estimated Glomerular Filt Rate > 60; Glucose Fasting 101 mg/dL (60-99); HDL Cholesterol 34 mg/dL (>40); LDL Cholesterol Calculated 63 mg/dL (<100); Potassium 3.9 mmol/L (3.3-5.1); Sodium 141 mmol/L (135-145); Total Protein 6.9 g/dL (6.5-8.0); Triglycerides 79 mg/dL (<150)
[2023-03-27 09:25] LABS: Microalbum/Creatinine Ratio Ur 9.7 ug/mg cr (<30)
== END 2023-03-27 08:02 | disposition home or self-care (01) ==
LOC: HO.LAB 08:01
PROVIDERS: PCP Internal Medicine; Visit Provider Internal Medicine
DX: E78.5 Hyperlipidemia, unspecified (principal); E55.9 Vitamin D deficiency, unspecified; I10 Essential (primary) hypertension; E11.9 Type 2 diabetes mellitus without complications
CPT/HCPCS: 36415; 80053; 80061; 82043; 82306; 82570

== ENCOUNTER 2023-04-23 09:24 | Outpatient (AMB) | payer MEDICARE, SELFPAY ==
--- NOTE | 2023-04-23 09:37 | MHC.PC.OV ---
Vital Signs 04/23/23 09:39 Height 5 ft 5 in Weight 172 lb 6 oz BMI 28.7 BP 118/60 Blood Pressure Location Lt brachial Position Sitting Pulse 70 Pulse Source Palpation Intake Visit Reasons: dm Assistant Spa Manager Required: No Accompanied by: Self / Same As Patient Allergies No Known Allergies Allergy (Verified 04/23/23 09:49) Medication List - Last Reconciled 04/23/23 by Madhavi Mujica MD atorvastatin 80 mg PO BEDTIME 90 days blood-glucose meter (FreeStyle [place] Lite kit) As directed calcium carbonate-vitamin D3 600 mg-10 mcg (400 unit) 1 tab PO BID 90 days ezetimibe 10 mg PO DAILY 90 days gabapentin 100 mg PO BEDTIME 30 days ibuprofen 800 mg PO Q8H 90 days lisinopril 10 mg PO DAILY 90 days omeprazole 20 mg PO DAILY 90 days pioglitazone 45 mg PO DAILY 90 days sumatriptan succinate 25 mg PO Q2-4H PRN 30 days trazodone 50 mg PO BEDTIME PRN 90 days Tobacco use date assessed: 12/18/22 Fall risk assessment: No Falls in past year Last assessed Fall Risk: 04/23/23 Dental Screening Dental Screen Date: 04/23/23 Did you have a dental visit in the last 12 months?: Yes Did you have a dental problem in the last 6 months where you did not have access to dental care?: No Was dental information given to patient?: Patient has dentist HPI HPI Comments History of Present Illness Details This is a 72-year-old female with diabetes mellitus type 2, hypertension, familial hyperlipidemia and GERD that comes today for follow-up on her conditions. A1c within goal. Blood pressure stable. LDL within goal. GERD well controlled with PPIs as needed. No chest pain or shortness of breath. [facility] Medical History Migraines Left knee pain Osteopenia Essential hypertension Postmenopausal Insomnia Polyarthralgia Familial hyperlipidemia GERD (gastroesophageal reflux disease) Diabetes mellitus Surgical History History of shoulder surgery History of tubal ligation Family History Father No problems noted. Mother Diabetes Brother Diabetes Throat cancer Social History Housing: Apartment Alcohol intake: never Patient Tobacco Use Status: Never used Tobacco e-Cigarette/Vaping Use: Never Used Second Hand Smoke Exposure: No service: No Current occupational status: disabled Current occupational exposures/hazards: No Cognitive needs: No Hearing needs: No Vision needs: Yes Questionnaire Thrive Questionnaire Date Thrive assessed: 12/18/22 SUSAN-7 AMB Questionnaire SUSAN-7 Date SUSAN - 7 assessed: 12/18/22 Source: Developed by Drs. Nahid Garcia, Alexia Pollock, Flavio Torrez and colleagues, with an educational em from [employer]. Review of Systems Const All systems reviewed & are unremarkable except as noted in HPI and below Eyes Reports no additional complaints, Denies change in vision and Denies other visual disturbances Card Denies chest pain at rest, Denies chest pain with activity, Denies edema, Denies irregular heart rhythm, Denies claudication, Denies dyspnea, Denies dyspnea on exertion, Denies orthopnea, Denies paroxysmal nocturnal dyspnea and Denies slow heart rate Resp Denies cough, Denies dyspnea and Denies dyspnea on exertion GI Denies abdominal pain, Denies change in bowel habits, Denies excessive flatus, Denies nausea and Denies vomiting Denies urinary incontinence, Denies urinary hesitancy and Denies urinary urgency Musc Denies abnormal gait, Denies atrophy, Denies deformity and Denies limited range of motion Skin/Breast Denies bleeding lesions, Denies changing lesions and Denies rash Neuro Denies abnormal gait, Denies behavioral changes and Denies lack of coordination Psych Denies behavioral changes Physical exam (Primary Care) Vital Signs: Last Vital Signs Pulse 70 04/23/23 09:39 BP 118/60 04/23/23 09:39 BMI result Body Mass Index 28.7 Tobacco/Smoking Status: Tobacco use Status Tobacco use date assessed 12/18/22 04/23/23 09:37 Patient Tobacco Use Status Never used Tobacco 04/23/23 09:37 e-Cigarette/Vaping Use Never Used 04/23/23 09:37 Thrive Assessment: Date of Thrive Assessment Date Thrive assessed 12/18/22 04/23/23 09:37 Eyes General: appearance normal, both eyes and all related structures Eyelids: Yes eyelids normal Conjunctivae: conjunctivae normal Neck Neck: Yes normal visual inspection and Yes supple Resp Effort & Inspection: normal respiratory effort Auscultation: clear to auscultation bilaterally Cardio Jugular venous distension: no JVD Rate: regular rate Rhythm: regular rhythm Heart sounds: S1 normal heart sound present and S2 normal heart sound present Extrem General: Yes full ROM Office Procedures Flu Questionnaire Does the patient have a severe egg allergy?: No Does the patient have severe life threatening allergies?: No Does the patient have a fever or illness today?: No Has the patient ever had Guillain-[place] Syndrome?: No Has the patient ever had any past reaction to a flu shot?: No Results AMB Hemoglobin A1c AMB Hemoglobin A1c 6.3 % Last Edit by REAL Franklin on 04/23/23 09:47 Immunizations flu vacc [id number] 6mos up(PF) 60 mcg(15 mcgx4)/0.5 mL IM syringe Performing Provider: Madhavi Mujica MD Performing Location: [facility] Administered by: REAL Franklin on 04/23/23 10:04 Dose Route Admin Location Dispensed Lot Number Expiration Date NDC Business Operations Coordinator 0.5 mL IM Left Deltoid 0.5 mL [id number] 11/11/23 18146-020-26 [employer] VIS Given Date VIS Provided VIS Publication Date 04/23/23 Single Vaccine 20 Eligibility Eligibility Date Funding Source Not VFC Eligible 04/23/23 Private Results Reviewed Results Reviewed: Laboratory Last Values Hgb A1c (Clinic) 6.3 % (4.0-6.0) H 04/23/23 09:36 Assessment and Plan Assessment & Plan (1) Diabetes mellitus: Code(s): E11.9 - Type 2 diabetes mellitus without complications Qualifiers: Diabetes mellitus type: type 2 Diabetes mellitus terminal make up operator insulin use: without fdc use Diabetes mellitus complication status: without complication Qualified Code(s): E11.9 - Type 2 diabetes mellitus without complications Plan: Continue Actos. A1c goal is equal or less than 7%. (2) GERD (gastroesophageal reflux disease): Code(s): K21.9 - Gastro-esophageal reflux disease without esophagitis Qualifiers: Esophagitis presence: esophagitis presence not specified Qualified Code(s): K21.9 - Gastro-esophageal reflux disease without esophagitis Plan: Continue PPIs as needed. (3) Familial hyperlipidemia: Code(s): E78.49 - Other hyperlipidemia Plan: Continue statins and Zetia. LDL goal is less than 70. (4) Essential hypertension: Code(s): I10 - Essential (primary) hypertension Plan: Continue lisinopril. Blood pressure goal is equal or less than 130/80. Orders: Orders Comprehensive [place]. Panel Fast 4 Months I10 - Essential (primary) hypertension AMB Hemoglobin A1c Today E11.9 - Type 2 diabetes mellitus without complications Influenza [id number] Immunization Today Z23 - Encounter for immunization Lipid Panel 4 Months E78.5 - Hyperlipidemia, unspecified Microalbumin, Random (w Creat) 4 Months E11.9 - Type 2 diabetes mellitus without complications Vitamin D 25-OH Total 4 Months E55.9 - Vitamin D deficiency, unspecified Medications: Refilled pioglitazone 45 mg PO DAILY 90 days 90 tabs 1RF Coding Level of Care Code Est Pt Level 4 (83538) Diagnoses Type 2 diabetes mellitus without complication, without long-term current use of insulin E11.9 Diabetes mellitus type: type 2 Diabetes mellitus fdc insulin use: without terminal make up operator use Diabetes mellitus complication status: without complication Gastroesophageal reflux disease, unspecified whether esophagitis present K21.9 Esophagitis presence: esophagitis presence not specified Familial hyperlipidemia E78.49 Essential hypertension I10 Time Spent (min) 23
[2023-04-23 09:39] VITALS: BP 118/60; PULSE 70; BMI 28.7
== END 2023-04-23 10:03 | disposition home or self-care (01) ==
PROVIDERS: PCP Internal Medicine; Visit Provider Internal Medicine
DX: E11.9 Type 2 diabetes mellitus without complications (principal); K21.9 Gastro-esophageal reflux disease without esophagitis; E78.49 Other hyperlipidemia; I10 Essential (primary) hypertension; Z23 Encounter for immunization
CPT/HCPCS: 83036; 90471; 90686; 99214

== ENCOUNTER 2023-07-31 08:25 | Outpatient (REF) | payer MEDICARE, SELFPAY ==
[2023-07-31 09:55] LABS: Creatinine Urine 136.92 mg/dL; Microalbum/Creatinine Ratio Ur 9.4 ug/mg cr (<30)
[2023-07-31 10:11] LABS: Alanine Aminotransferase 20 U/L (0-31); Albumin Level 3.8 g/dL (3.5-5.0); Alkaline Phosphatase 72 U/L (39-117); Anion Gap 9 (12-20); Aspartate Amino Transferase 24 U/L (5-31); Blood Urea Nitrogen 16 mg/dL (9-16); Calcium 9.5 mg/dL (8.4-10.2); Carbon Dioxide 29 mmol/L (22-29); Chloride 107 mmol/L (96-108); Cholesterol 120 mg/dL (<200); Estimated Glomerular Filt Rate > 60; Glucose Fasting 97 mg/dL (60-99); HDL Cholesterol 41 mg/dL (>40); LDL Cholesterol Calculated 63 mg/dL (<100); Potassium 3.8 mmol/L (3.3-5.1); Sodium 141 mmol/L (135-145); Total Protein 6.9 g/dL (6.5-8.0); Triglycerides 84 mg/dL (<150)
[2023-07-31 10:23] LABS: Vitamin D 25-OH Total 29.4 ng/mL (>30)
[2023-07-31 11:23] LABS: Bilirubin Total 0.6 mg/dL (0.0-1.0)
== END 2023-07-31 08:26 | disposition home or self-care (01) ==
LOC: HO.LAB 08:25
PROVIDERS: PCP Internal Medicine; Visit Provider Internal Medicine
DX: I10 Essential (primary) hypertension (principal); E78.5 Hyperlipidemia, unspecified; E11.9 Type 2 diabetes mellitus without complications; E55.9 Vitamin D deficiency, unspecified
CPT/HCPCS: 36415; 80053; 80061; 82043; 82306; 82570

== ENCOUNTER 2023-08-27 13:49 | Outpatient (AMB) | payer MEDICARE, SELFPAY ==
[2023-08-27 13:52] VITALS: BP 122/70; BMI 28.8
--- NOTE | 2023-08-27 13:52 | MHC.PC.OV ---
Vital Signs 08/27/23 13:52 Height 5 ft 5 in Weight 173 lb BMI 28.8 BP 122/70 Blood Pressure Location Lt brachial Position Sitting Intake Visit Reasons: physical exam - see comments Intake Note: Patient here for a physical exam Child Care Cook Required: No Accompanied by: Self / Same As Patient Allergies No Known Allergies Allergy (Verified 08/27/23 14:09) Medication List - Last Reconciled 08/27/23 by Madhavi Mujica MD atorvastatin 80 mg PO BEDTIME 90 days blood-glucose meter (FreeStyle [place] Lite kit) As directed calcium carbonate-vitamin D3 600 mg-10 mcg (400 unit) 1 tab PO BID 90 days ezetimibe 10 mg PO DAILY 90 days gabapentin 100 mg PO BEDTIME 30 days ibuprofen 800 mg PO Q8H 90 days lisinopril 10 mg PO DAILY 90 days omeprazole 20 mg PO DAILY 90 days pioglitazone 45 mg PO DAILY 90 days sumatriptan succinate 25 mg PO Q2-4H PRN 30 days trazodone 50 mg PO BEDTIME PRN 90 days Tobacco use date assessed: 08/27/23 Fall risk assessment: No Falls in past year Last assessed Fall Risk: 08/27/23 Dental Screening Dental Screen Date: 08/27/23 Did you have a dental visit in the last 12 months?: No Did you have a dental problem in the last 6 months where you did not have access to dental care?: No Was dental information given to patient?: Patient has dentist HPI HPI Comments History of Present Illness Details This is a 72-year-old female with diabetes mellitus type 2 that comes for her physical exam. A1c within goal. LDL within goal. Last mammogram was over 2 years ago. Bone density done 2022 and next bone density will be 2024. She declines colonoscopy or Cologuard or any screening for colon cancer. No chest pain or shortness of breath. [facility] Medical History Migraines Left knee pain Osteopenia Essential hypertension Postmenopausal Insomnia Polyarthralgia Familial hyperlipidemia GERD (gastroesophageal reflux disease) Diabetes mellitus Surgical History History of shoulder surgery History of tubal ligation Family History Father No problems noted. Mother Diabetes Brother Diabetes Throat cancer Social History Housing: Apartment Alcohol intake: never Patient Tobacco Use Status: Never used Tobacco e-Cigarette/Vaping Use: Never Used Second Hand Smoke Exposure: No service: No Current occupational status: disabled Current occupational exposures/hazards: No Cognitive needs: No Hearing needs: No Vision needs: Yes Questionnaire PHQ-9 Over the last 2 weeks, how often have you been bothered by any of the following problems? 1. Little interest or pleasure in doing things: not at all 2. Feeling down, depressed, or hopeless: not at all 3. Trouble falling or staying asleep, or sleeping too much: not at all 4. Feeling tired or having little energy: not at all 5. Poor appetite or overeating: not at all 6. Feeling bad about yourself - or that you are a failure or have let yourself or your family down: not at all 7. Trouble concentrating on things, such as reading the newspaper or watching television: not at all 8. Moving or speaking so slowly that other people could have noticed. Or the opposite - being so fidgety or restless that you have been moving around a lot more than usual: not at all 9. Thoughts that you would be better off or of hurting yourself in some way: not at all Total score: 0 Depression Screening Interpretation: Negative Depression Screening Done: Yes 53240 - PHQ-9 Billing: Yes Source: Developed by Drs. Nahid Garcia, Alexia Pollock, Flavio Torrez and colleagues, with an educational em from [employer]. Thrive Questionnaire Date Thrive assessed: 08/27/23 I am a: Patient What is your living situation today?: I have a steady place to live Within the past 12 months, did the food you bought not last and you didn't have the money to get more?: Never true Within the past 12 months, did you worry whether your food would run out before you got money to buy more?: Never true Do you have trouble paying for medicines?: No Do you have trouble getting transportation to medical appointments?: No Do you have trouble paying your heating and electricity bill?: No Do you have trouble taking care of your child, family member or friend?: No Do you have trouble with day-to-day activities such as bathing, preparing meals, shopping, managing finances, etc.?: No Are you currently unemployed and looking for a job?: No Are you interested in more education?: No Please select the resources that you would like help with: None Currently or been in a relationship where the following occur: no concerns reported THRIVE Score: 0 AUDIT C Alcohol Use Questionnaire (AUDIT-C) 1. How often do you have a drink containing alcohol?: Never Total Score: 0 SUSAN-7 AMB Questionnaire SUSAN-7 Date SUSAN - 7 assessed: 08/27/23 Feeling nervous, anxious, or on edge: 0 = Not at all Not being able to stop or control worryin = Not at all Worrying too much about different things: 0 = Not at all Trouble relaxin = Not at all Being so restless that it is hard to sit still: 0 = Not at all Becoming easily annoyed or irritable: 0 = Not at all Feeling afraid as if something awful might happen: 0 = Not at all Total SUSAN-7 score (0-4 normal; 5-9 mild; 10-14 moderate; 15-21 severe): 0 Source: Developed by Drs. Nahid Garcia, Alexia Pollock, Flavio Torrez and colleagues, with an educational em from [employer]. SUSAN-7 Assessment Billing SUSAN-7 Assessment Tool: SUSAN-7 Assessment 30540 Review of Systems Const All systems reviewed & are unremarkable except as noted in HPI and below Eyes Reports no additional complaints, Denies change in vision and Denies other visual disturbances Card Denies chest pain at rest, Denies chest pain with activity, Denies edema, Denies irregular heart rhythm, Denies claudication, Denies dyspnea, Denies dyspnea on exertion, Denies orthopnea, Denies paroxysmal nocturnal dyspnea and Denies slow heart rate Resp Denies cough, Denies dyspnea and Denies dyspnea on exertion Physical exam (Primary Care) Vital Signs: Last Vital Signs BP 122/70 08/27/23 13:52 BMI result Body Mass Index 28.8 Tobacco/Smoking Status: Tobacco use Status Tobacco use date assessed 08/27/23 08/27/23 14:01 Patient Tobacco Use Status Never used Tobacco 08/27/23 14:01 e-Cigarette/Vaping Use Never Used 08/27/23 14:01 PHQ-9: PHQ-9 Score PHQ-9: Total score 0 08/27/23 14:14 Depression Screening Interpretation: Negative Thrive Assessment: Date of Thrive Assessment Date Thrive assessed 08/27/23 08/27/23 14:06 Currently or been in a relationship where the following occur: no concerns reported Const Orientation/consciousness: patient oriented x3 HENMT Head: Yes normal to inspection, Yes normocephalic and Yes atraumatic Ears: external ears normal Eyes General: appearance normal, both eyes and all related structures Eyelids: Yes eyelids normal Conjunctivae: conjunctivae normal Neck Neck: Yes normal visual inspection and Yes supple Resp Effort & Inspection: normal respiratory effort Auscultation: clear to auscultation bilaterally Cardio Jugular venous distension: no JVD Rate: regular rate Rhythm: regular rhythm Heart sounds: S1 normal heart sound present and S2 normal heart sound present GI Inspection: Yes normal to inspection Palpation (GI): Soft to palpation and nontender Auscultation: normal bowel sounds Skin General skin exam: no rashes or lesions noted Neuro General: patient oriented x3 and no focal motor deficits Extrem General: Yes full ROM Psych Appearance: grossly normal Results AMB Hemoglobin A1c AMB Hemoglobin A1c 5.8 % Last Edit by DENISSE Chester on 08/27/23 14:05 Results Reviewed Results Reviewed: Laboratory Last Values Hgb A1c (Clinic) 5.8 % (4.0-6.0) 08/27/23 13:52 Assessment and Plan Assessment & Plan (1) Physical exam: Code(s): Z00.00 - Encounter for general adult medical examination without abnormal findings Plan: Repeat in a year. (2) Diabetes mellitus: Code(s): E11.9 - Type 2 diabetes mellitus without complications Qualifiers: Diabetes mellitus type: type 2 Diabetes mellitus manager long term care insulin use: without penitentiary use Diabetes mellitus complication status: without complication Qualified Code(s): E11.9 - Type 2 diabetes mellitus without complications Plan: Continue metformin and Actos. A1c goal is equal or less than 7%. Orders: Orders MM screening mammo BI Today Z12.31 - Encounter for screening mammogram for malignant neoplasm of breast Lipid Panel 4 Months E78.5 - Hyperlipidemia, unspecified Vitamin D 25-OH Total 4 Months E55.9 - Vitamin D deficiency, unspecified AMB Hemoglobin A1c Today E11.9 - Type 2 diabetes mellitus without complications Microalbumin, Random (w Creat) 4 Months E11.9 - Type 2 diabetes mellitus without complications Comprehensive [place]. Panel Fast 4 Months I10 - Essential (primary) hypertension Medications: New blood sugar diagnostic (FreeStyle Lite Strips) Use 1 test strip once a day 100 ea 2RF E11.9 - Type 2 diabetes mellitus without complications Review Patient declined Colonoscopy: 08/27/23 Patient declined Colon Cancer Screen Lab: 08/27/23 Coding Level of Care Code Est Pt Prev Care >65y(65736) Diagnoses Physical exam Z00.00 Type 2 diabetes mellitus without complication, without long-term current use of insulin E11.9 Diabetes mellitus type: type 2 Diabetes mellitus penitentiary insulin use: without manager long term care use Diabetes mellitus complication status: without complication Additional Codes SUSAN-7 Assessment Billing - SUSAN-7 Assessment Tool: SUSAN-7 Assessment 18651 ([id number]) Time Spent (min) 31
== END 2023-08-27 14:20 | disposition home or self-care (01) ==
PROVIDERS: PCP Internal Medicine; Visit Provider Internal Medicine
DX: Z00.00 Encounter for general adult medical examination without abnormal findings (principal); E11.9 Type 2 diabetes mellitus without complications
CPT/HCPCS: 83036; 99397

== ENCOUNTER 2023-09-12 07:58 | Outpatient (REF) | payer MEDICARE, SELFPAY ==
--- NOTE | ~2023-09-12 | MM_ITS ---
EXAMINATION: MM SCREENING DIGITAL BREAST TOMOSYNTHESIS, BILATERAL CLINICAL INFORMATION: Screening. Asymptomatic. COMPARISON: Mammography: 10/08/2018, 09/14/2017, 09/04/2016, 09/13/2015, and 03/30/2014. TECHNIQUE: Digital breast tomosynthesis is performed in both the craniocaudal and mediolateral oblique views along with computer-aided detection (CAD). Synthesized 2D images are generated from the tomosynthesis. FINDINGS: There are scattered areas of fibroglandular density (ACR BI-RADS breast composition Category b). Breast parenchyma is bordering on heterogeneously dense. There is mild vascular calcification bilaterally. There are no suspicious masses, suspicious grouped calcifications, or areas of architectural distortion in either breast. The parenchymal pattern is stable from prior exams. No skin or axillary abnormalities. MM/MM tomosynthesis screening BI IMPRESSION: No mammographic evidence of malignancy. ASSESSMENT: BI-RADS BI-RADS 1 - Negative RECOMMENDATION: Routine annual mammography screening. 1 year F/U This examination should not preclude the clinical evaluation of a suspicious palpable abnormality. This patient's information was entered into a reminder system with a target due date for their next mammogram.
== END 2023-09-12 07:59 | disposition home or self-care (01) ==
LOC: HO.MAMMO 07:58
PROVIDERS: PCP Internal Medicine; Visit Provider Internal Medicine
DX: Z12.31 Encounter for screening mammogram for malignant neoplasm of breast (principal)
CPT/HCPCS: 77063; 77067

== ENCOUNTER → 2023-09-12 08:15 | Outpatient (BNV) | payer MEDICARE, SELFPAY | PROVIDERS: PCP Internal Medicine; Visit Provider Radiology Diagnostic Radiology | DX: Z12.31 Encounter for screening mammogram for malignant neoplasm of breast (principal) | CPT/HCPCS: 77063; 77067 ==

== ENCOUNTER 2023-12-04 07:47 | Outpatient (REF) | payer OTHER, SELFPAY ==
[2023-12-04 09:01] LABS: Alanine Aminotransferase 20 U/L (0-31); Albumin Level 3.8 g/dL (3.5-5.0); Alkaline Phosphatase 71 U/L (39-117); Anion Gap 9 (12-20); Aspartate Amino Transferase 24 U/L (5-31); Bilirubin Total 0.7 mg/dL (0.0-1.0); Blood Urea Nitrogen 15 mg/dL (9-16); Calcium 9.4 mg/dL (8.4-10.2); Carbon Dioxide 28 mmol/L (22-29); Chloride 107 mmol/L (96-108); Cholesterol 130 mg/dL (<200); Estimated Glomerular Filt Rate > 60; Glucose Fasting 104 mg/dL (60-99); HDL Cholesterol 40 mg/dL (>40); LDL Cholesterol Calculated 68 mg/dL (<100); Potassium 3.8 mmol/L (3.3-5.1); Sodium 140 mmol/L (135-145); Total Protein 6.5 g/dL (6.5-8.0); Triglycerides 113 mg/dL (<150); Vitamin D 25-OH Total 34.2 ng/mL (>30)
[2023-12-04 09:22] LABS: Creatinine Urine 111.57 mg/dL; Microalbum/Creatinine Ratio Ur 14.3 ug/mg cr (<30)
== END 2023-12-04 07:48 | disposition home or self-care (01) ==
LOC: HO.LAB 07:47
PROVIDERS: PCP Internal Medicine; Visit Provider Internal Medicine
DX: E11.9 Type 2 diabetes mellitus without complications (principal); E78.5 Hyperlipidemia, unspecified; E55.9 Vitamin D deficiency, unspecified; I10 Essential (primary) hypertension
CPT/HCPCS: 36415; 80053; 80061; 82043; 82306; 82570

== ENCOUNTER 2023-12-31 09:00 | Outpatient (AMB) | payer OTHER, SELFPAY ==
--- NOTE | 2023-12-31 09:11 | A.OFFPC_ITS ---
Vital Signs 12/31/23 09:12 12/31/23 09:40 Weight 170 lb BP 158/70 H 150/70 H Blood Pressure Location Lt brachial Lt brachial Position Sitting Sitting Intake Visit Reasons: dm Intake Note: Patient here for a follow up DM Clinical Nursing Professor Required: No Accompanied by: Self / Same As Patient Allergies No Known Allergies Allergy (Verified 12/31/23 09:32) Medication List - Last Reconciled 12/31/23 by Madhavi Mujica MD atorvastatin 80 mg PO BEDTIME 90 days blood sugar diagnostic (FreeStyle Lite Strips) Use 1 test strip once a day blood sugar diagnostic (OneTouch Verio test strips) Use 1 test strip once a day blood-glucose meter (FreeStyle [place] Lite kit) As directed blood-glucose meter (OneTouch Verio Flex Meter) As directed calcium carbonate-vitamin D3 600 mg-10 mcg (400 unit) 1 tab PO BID 90 days ezetimibe 10 mg PO DAILY 90 days gabapentin 100 mg PO BEDTIME 30 days ibuprofen 800 mg PO Q8H 90 days lancets (BarEyeTouch UltraSoft 2 Lancet) Use 1 lancet once a day lisinopril 10 mg PO DAILY 90 days omeprazole 20 mg PO DAILY 90 days pioglitazone 45 mg PO DAILY 90 days sumatriptan succinate 25 mg PO Q2-4H PRN 30 days trazodone 50 mg PO BEDTIME PRN 90 days Tobacco use date assessed: 08/27/23 Fall risk assessment: No Falls in past year Last assessed Fall Risk: 12/31/23 Dental Screening Dental Screen Date: 08/27/23 HPI HPI Comments History of Present Illness Details This is a 73-year-old female with diabetes mellitus type 2, hypertension, familial hyperlipidemia and GERD that comes today for follow-up on her conditions. A1c within goal. Blood pressure elevated and she did took her lisinopril. Blood pressure will be recheck in 3 weeks by nurse navigator. LDL within goal. GERD stable with PPIs. Denies any chest pain or shortness on breath. Diabetic eye exam done April 2023 was normal as per patient. [facility] Medical History Migraines Left knee pain Osteopenia Essential hypertension Postmenopausal Insomnia Polyarthralgia Familial hyperlipidemia GERD (gastroesophageal reflux disease) Diabetes mellitus Surgical History History of shoulder surgery History of tubal ligation Family History Father No problems noted. Mother Diabetes Brother Diabetes Throat cancer Social History Housing: Apartment Alcohol intake: never Patient Tobacco Use Status: Never used Tobacco e-Cigarette/Vaping Use: Never Used Second Hand Smoke Exposure: No service: No Current occupational status: disabled Current occupational exposures/hazards: No Cognitive needs: No Hearing needs: No Vision needs: Yes Questionnaire Thrive Questionnaire Date Thrive assessed: 08/27/23 SUSAN-7 AMB Questionnaire SUSAN-7 Date SUSAN - 7 assessed: 08/27/23 Source: Developed by Drs. Nahid Garcia, Alexia Pollock, Flavio Torrez and colleagues, with an educational em from [employer]. Review of Systems Const All systems reviewed & are unremarkable except as noted in HPI and below Card Denies chest pain at rest, Denies chest pain with activity, Denies edema, Denies irregular heart rhythm, Denies claudication, Denies dyspnea, Denies dyspnea on exertion, Denies orthopnea, Denies paroxysmal nocturnal dyspnea and Denies slow heart rate Resp Denies cough, Denies dyspnea and Denies dyspnea on exertion GI Denies abdominal pain, Denies change in bowel habits, Denies excessive flatus, Denies nausea and Denies vomiting Denies urinary incontinence, Denies urinary hesitancy and Denies urinary urgency Musc Denies abnormal gait, Denies atrophy, Denies deformity and Denies limited range of motion Skin/Breast Denies bleeding lesions, Denies changing lesions and Denies rash Neuro Denies abnormal gait and Denies lack of coordination Physical exam (Primary Care) Vital Signs: Last Vital Signs BP 158/70 H 12/31/23 09:12 Tobacco/Smoking Status: Tobacco use Status Tobacco use date assessed 08/27/23 12/31/23 09:14 Patient Tobacco Use Status Never used Tobacco 12/31/23 09:14 e-Cigarette/Vaping Use Never Used 12/31/23 09:14 Thrive Assessment: Date of Thrive Assessment Date Thrive assessed 08/27/23 12/31/23 09:14 Resp Effort & Inspection: normal respiratory effort Auscultation: clear to auscultation bilaterally Cardio Jugular venous distension: no JVD Rate: regular rate Rhythm: regular rhythm Heart sounds: S1 normal heart sound present and S2 normal heart sound present Extrem General: Yes full ROM Results AMB Hemoglobin A1c AMB Hemoglobin A1c 5.4 % Last Edit by DENISSE Chester on 12/31/23 09:1 9 Results Reviewed Results Reviewed: Laboratory Last Values Hgb A1c (Clinic) 5.4 % (4.0-6.0) 12/31/23 09:11 Assessment and Plan Assessment & Plan (1) Diabetes mellitus: Code(s): E11.9 - Type 2 diabetes mellitus without complications Qualifiers: Diabetes mellitus type: type 2 Diabetes mellitus retirement insulin use: without retirement use Diabetes mellitus complication status: without complication Qualified Code(s): E11.9 - Type 2 diabetes mellitus without complications Plan: Continue Actos. A1c goal is equal or less than 7%. (2) GERD (gastroesophageal reflux disease): Code(s): K21.9 - Gastro-esophageal reflux disease without esophagitis Qualifiers: Esophagitis presence: esophagitis presence not specified Qualified Code(s): K21.9 - Gastro-esophageal reflux disease without esophagitis Plan: Continue PPIs. (3) Familial hyperlipidemia: Code(s): E78.49 - Other hyperlipidemia Plan: Continue statins and Zetia. LDL goal is less than 70. (4) Essential hypertension: Code(s): I10 - Essential (primary) hypertension Plan: Continue lisinopril. Blood pressure goal is equal or less than 130/80. Orders: Orders AMB Hemoglobin A1c Today E11.9 - Type 2 diabetes mellitus without complications Lipid Panel 4 Months E78.5 - Hyperlipidemia, unspecified Microalbumin, Random (w Creat) 4 Months E11.9 - Type 2 diabetes mellitus without complications Comprehensive [place]. Panel Fast 4 Months I10 - Essential (primary) hypertension Coding Level of Care Code Est Pt Level 4 (25954) Complex EM visit Add On G2211 Diagnoses Type 2 diabetes mellitus without complication, without long-term current use of insulin E11.9 Diabetes mellitus type: type 2 Diabetes mellitus ad terminal makeup operator insulin use: without ad terminal makeup operator use Diabetes mellitus complication status: without complication Gastroesophageal reflux disease, unspecified whether esophagitis present K21.9 Esophagitis presence: esophagitis presence not specified Familial hyperlipidemia E78.49 Essential hypertension I10 Time Spent (min) 23
[2023-12-31 09:12] VITALS: BP 158/70
[2023-12-31 09:40] VITALS: BP 150/70
== END 2023-12-31 09:42 | disposition home or self-care (01) ==
PROVIDERS: PCP Internal Medicine; Visit Provider Internal Medicine
DX: E11.9 Type 2 diabetes mellitus without complications (principal); K21.9 Gastro-esophageal reflux disease without esophagitis; E78.49 Other hyperlipidemia; I10 Essential (primary) hypertension
CPT/HCPCS: 83036; 99214; G2211

== ENCOUNTER 2024-05-28 07:54 | Outpatient (REF) | payer OTHER, SELFPAY ==
[2024-05-28 08:54] LABS: Alanine Aminotransferase 27 U/L (0-31); Albumin Level 3.7 g/dL (3.5-5.0); Alkaline Phosphatase 73 U/L (39-117); Anion Gap 9 (12-20); Aspartate Amino Transferase 33 U/L (5-31); Bilirubin Total 0.5 mg/dL (0.0-1.0); Blood Urea Nitrogen 16 mg/dL (9-16); Calcium 9.4 mg/dL (8.4-10.2); Carbon Dioxide 26 mmol/L (22-29); Chloride 110 mmol/L (96-108); Cholesterol 124 mg/dL (<200); Estimated Glomerular Filt Rate > 60; Glucose Fasting 109 mg/dL (60-99); HDL Cholesterol 39 mg/dL (>40); LDL Cholesterol Calculated 65 mg/dL (<100); Potassium 3.7 mmol/L (3.3-5.1); Sodium 141 mmol/L (135-145); Total Protein 6.5 g/dL (6.5-8.0); Triglycerides 100 mg/dL (<150)
[2024-05-28 09:31] LABS: Creatinine Urine 182.59 mg/dL
== END 2024-05-28 07:55 | disposition home or self-care (01) ==
LOC: HO.LAB 07:54
PROVIDERS: PCP Internal Medicine; Visit Provider Internal Medicine
DX: E78.5 Hyperlipidemia, unspecified (principal); E11.9 Type 2 diabetes mellitus without complications; I10 Essential (primary) hypertension
CPT/HCPCS: 36415; 80053; 80061; 82043; 82570

== ENCOUNTER 2024-06-02 07:37 | Outpatient (AMB) | payer OTHER, SELFPAY ==
[2024-06-02 07:45] VITALS: BP 126/70; BMI 28.6
--- NOTE | 2024-06-02 07:45 | MHC.PC.OV ---
Vital Signs 06/02/24 07:45 Height 5 ft 5 in Weight 172 lb BMI 28.6 BP 126/70 Blood Pressure Location Lt brachial Position Sitting Intake Visit Reasons: 4 month follow up Intake Note: Patient here for a 4 month follow up [employer] Required: Yes [employer] Language: Separator Inserter Name: Madhavi Mujica MD Information Interpreted: non-clinical & clinical Accompanied by: Self / Same As Patient Allergies No Known Allergies Allergy (Verified 06/02/24 08:00) Medication List - Last Reconciled 06/02/24 by Madhavi Mujica MD atorvastatin 80 mg PO BEDTIME 90 days blood sugar diagnostic (FreeStyle Lite Strips) Use 1 test strip once a day blood sugar diagnostic (OneTouch Verio test strips) Use 1 test strip once a day blood-glucose meter (FreeStyle Perry Lite kit) As directed blood-glucose meter (OneTouch Verio Flex Meter) As directed calcium carbonate-vitamin D3 600 mg-10 mcg (400 unit) 1 tab PO BID 90 days ezetimibe 10 mg PO DAILY 90 days gabapentin 100 mg PO BEDTIME 30 days ibuprofen 800 mg PO Q8H 90 days lancets (NewsBasisTouch UltraSoft 2 Lancet) Use 1 lancet once a day lisinopril 10 mg PO DAILY 90 days omeprazole 20 mg PO DAILY 90 days pioglitazone 45 mg PO DAILY 90 days sumatriptan succinate 25 mg PO Q2-4H PRN 30 days trazodone 50 mg PO BEDTIME PRN 90 days Tobacco use date assessed: 06/02/24 Fall risk assessment: No Falls in past year Last assessed Fall Risk: 06/02/24 Dental Screening Dental Screen Date: 06/02/24 Did you have a dental visit in the last 12 months?: No Did you have a dental problem in the last 6 months where you did not have access to dental care?: No Was dental information given to patient?: Patient has dentist HPI HPI Comments History of Present Illness Details The patient is a 73-year-old female presenting with a follow-up visit for the management of Type 2 Diabetes Mellitus, Essential Hypertension, and Hyperlipidemia. The patient has been managing diabetes and hypertension for an unspecified duration. Current medications include atorvastatin 80 mg for hyperlipidemia, which has yielded an LDL level of 65 mg/dL, maintaining target goals. Lisinopril 10 mg effectively manages blood pressure. The patient also takes Actos 45 mg for diabetes, calcium with vitamin D for bone health, and omeprazole for gastroesophageal reflux disease (GERD). Gabapentin, previously prescribed for an unclear reason, is no longer in use. The patient occasionally experiences migraines, for which sumatriptan is used as needed. No significant frequency or precipitation factors were discussed. Recommendations for osteoporosis screening by bone densitometry are due this year. She has osteopenia diagnosed in 2022 and calcium with vitamin-D will be refill for this matter. [facility] Medical History Migraines Left knee pain Osteopenia Essential hypertension Postmenopausal Insomnia Polyarthralgia Familial hyperlipidemia GERD (gastroesophageal reflux disease) Diabetes mellitus Surgical History History of shoulder surgery History of tubal ligation Family History Father No problems noted. Mother Diabetes Brother Diabetes Throat cancer Social History Housing: Apartment Alcohol intake: never Patient Tobacco Use Status: Never used Tobacco e-Cigarette/Vaping Use: Never Used Second Hand Smoke Exposure: No service: No Current occupational status: disabled Current occupational exposures/hazards: No Cognitive needs: No Hearing needs: No Vision needs: Yes Questionnaire PHQ-9 Over the last 2 weeks, how often have you been bothered by any of the following problems? 1. Little interest or pleasure in doing things: not at all 2. Feeling down, depressed, or hopeless: not at all 3. Trouble falling or staying asleep, or sleeping too much: not at all 4. Feeling tired or having little energy: not at all 5. Poor appetite or overeating: not at all 6. Feeling bad about yourself - or that you are a failure or have let yourself or your family down: not at all 7. Trouble concentrating on things, such as reading the newspaper or watching television: not at all 8. Moving or speaking so slowly that other people could have noticed. Or the opposite - being so fidgety or restless that you have been moving around a lot more than usual: not at all 9. Thoughts that you would be better off or of hurting yourself in some way: not at all Total score: 0 Depression Screening Interpretation: Negative Depression Screening Done: Yes 86442 - PHQ-9 Billing: Yes Source: Developed by Drs. Nahid Garcia, Alexia Pollock, Flavio Torrez and colleagues, with an educational em from [employer]. Thrive Questionnaire Date Thrive assessed: 06/02/24 I am a: Patient What is your living situation today?: I have a steady place to live Within the past 12 months, did the food you bought not last and you didn't have the money to get more?: Never true Within the past 12 months, did you worry whether your food would run out before you got money to buy more?: Never true Do you have trouble paying for medicines?: No Do you have trouble getting transportation to medical appointments?: No Do you have trouble paying your heating and electricity bill?: No Do you have trouble taking care of your child, family member or friend?: No Do you have trouble with day-to-day activities such as bathing, preparing meals, shopping, managing finances, etc.?: No Are you currently unemployed and looking for a job?: No Are you interested in more education?: No Please select the resources that you would like help with: None Currently or been in a relationship where the following occur: No concerns reported THRIVE Score: 0 AUDIT C Alcohol Use Questionnaire (AUDIT-C) 1. How often do you have a drink containing alcohol?: Never Total Score: 0 Score Reviewed/Action Taken: No SUSAN-7 AMB Questionnaire SUSAN-7 Date SUSAN - 7 assessed: 06/02/24 Feeling nervous, anxious, or on edge: 0 = Not at all Not being able to stop or control worryin = Not at all Worrying too much about different things: 0 = Not at all Trouble relaxin = Not at all Being so restless that it is hard to sit still: 0 = Not at all Becoming easily annoyed or irritable: 0 = Not at all Feeling afraid as if something awful might happen: 0 = Not at all Total SUSAN-7 score (0-4 normal; 5-9 mild; 10-14 moderate; 15-21 severe): 0 Source: Developed by Drs. Nahid Garcia, Alexia Pollock, Flavio Torrez and colleagues, with an educational em from [employer]. SUSAN-7 Assessment Billing SUSAN-7 Assessment Tool: SUSAN-7 Assessment 16091 Review of Systems Const All systems reviewed & are unremarkable except as noted in HPI and below Card Denies chest pain at rest, Denies chest pain with activity, Denies edema, Denies irregular heart rhythm, Denies claudication, Denies dyspnea, Denies dyspnea on exertion, Denies orthopnea, Denies paroxysmal nocturnal dyspnea and Denies slow heart rate Resp Denies cough, Denies dyspnea and Denies dyspnea on exertion GI Denies abdominal pain, Denies change in bowel habits, Denies excessive flatus, Denies nausea and Denies vomiting Physical exam (Primary Care) Vital Signs: Last Vital Signs BP 126/70 06/02/24 07:45 BMI result Body Mass Index 28.6 Tobacco/Smoking Status: Tobacco use Status Tobacco use date assessed 06/02/24 06/02/24 07:50 Patient Tobacco Use Status Never used Tobacco 06/02/24 07:50 e-Cigarette/Vaping Use Never Used 06/02/24 07:50 PHQ-9: PHQ-9 Score PHQ-9: Total score 0 06/02/24 08:04 Depression Screening Interpretation: Negative Thrive Assessment: Date of Thrive Assessment Date Thrive assessed 06/02/24 06/02/24 07:50 Currently or been in a relationship where the following occur: No concerns reported Resp Effort & Inspection: normal respiratory effort Auscultation: clear to auscultation bilaterally Cardio Jugular venous distension: no JVD Rate: regular rate Rhythm: regular rhythm Heart sounds: S1 normal heart sound present and S2 normal heart sound present Neuro General: no focal motor deficits Extrem General: Yes full ROM Office Procedures Flu Questionnaire Does the patient have a severe egg allergy?: No Results AMB Hemoglobin A1c AMB Hemoglobin A1c 5.5 % Last Edit by DENISSE Chester on 06/02/24 07:51 Immunizations Fluarix Triv [id number] (PF) 45 mcg (15 mcg x 3)/0.5 mL IM syringe Performing Provider: Madhavi Mujica MD Performing Location: [facility] [place] Documented (not given) by: DENISSE Chester on 06/02/24 07:52 Reason Not Given: Patient Refused pneumoc 20-orquidea conj-dip cr(PF) 0.5 mL IM syringe Performing Provider: Madhavi Mujica MD Performing Location: [facility] [place] Administered by: DENISSE Chester on 06/02/24 08:18 Dose Route Admin Location Dispensed Lot Number Expiration Date NDC Drying Supervisor 0.5 mL IM Left Deltoid 0.5 mL [id number] 09/11/25 Parse/F[employer]her[employer] VIS Given Date VIS Provided VIS Publication Date 06/02/24 Single Vaccine 21 Eligibility Eligibility Date Funding Source Not [facility] Eligible 06/02/24 Private Results Reviewed Results Reviewed: Laboratory Last Values Hgb A1c (Clinic) 5.5 % (4.0-6.0) 06/02/24 07:50 Coding Level of Care Code Est Pt Level 4 (72883) Complex EM visit Add On G2211 Diagnoses Essential hypertension I10 Migraines G43.909 Osteopenia, unspecified location M85.80 Osteopenia location: unspecified Type 2 diabetes mellitus without complication, without long-term current use of insulin E11.9 Diabetes mellitus type: type 2 Diabetes mellitus technician terminal and repeater insulin use: without correction use Diabetes mellitus complication status: without complication Gastroesophageal reflux disease, unspecified whether esophagitis present K21.9 Esophagitis presence: esophagitis presence not specified Familial hyperlipidemia E78.49 Additional Codes PHQ-9 - 61850 - PHQ-9 Billing: Yes ([id number]) SUSAN-7 Assessment Billing - SUSAN-7 Assessment Tool: SUSAN-7 Assessment 40888 ([id number]) Time Spent (min) 22 Assessment & Plan Assessment & Plan (1) Essential hypertension: Code(s): I10 - Essential (primary) hypertension Category: Medical (2) Migraines: Code(s): G43.909 - Migraine, unspecified, not intractable, without status migrainosus Category: Medical (3) Osteopenia: Code(s): M85.80 - Other specified disorders of bone density and structure, unspecified site Category: Medical Qualifiers: Osteopenia location: unspecified Qualified Code(s): M85.80 - Other specified disorders of bone density and structure, unspecified site (4) Diabetes mellitus: Code(s): E11.9 - Type 2 diabetes mellitus without complications Category: Medical Qualifiers: Diabetes mellitus type: type 2 Diabetes mellitus correction insulin use: without technician terminal and repeater use Diabetes mellitus complication status: without complication Qualified Code(s): E11.9 - Type 2 diabetes mellitus without complications (5) GERD (gastroesophageal reflux disease): Code(s): K21.9 - Gastro-esophageal reflux disease without esophagitis Category: Medical Qualifiers: Esophagitis presence: esophagitis presence not specified Qualified Code(s): K21.9 - Gastro-esophageal reflux disease without esophagitis (6) Familial hyperlipidemia: Code(s): E78.49 - Other hyperlipidemia Category: Medical Plan - Continue atorvastatin 80 mg for hyperlipidemia management. - Maintain lisinopril 10 mg daily for hypertension control. - Continue current regimen for diabetes management, including Actos 45 mg. - Ensure completion of bone densitometry as indicated this year. - Pneumonia vaccination to be administered today, as the patient is 73 years old. - Discontinue gabapentin as it is not being used currently. Patient was informed and verbally consented to the use of an ambient scribe for clinic note documentation during this visit. During today's visit, I discussed with the patient the continued success of her current medication regimen in managing her chronic conditions, including diabetes, hypertension, and hyperlipidemia, as evidenced by her LDL cholesterol of 65 mg/dL and stable blood pressure. We reviewed the need for ongoing bone health surveillance via densitometry, which is due this year. I explained the benefits of receiving the pneumonia vaccine at her age, consistent with preventive health guidelines. We agreed to the planned continuation of medications with the cessation of gabapentin, as it is no longer utilized. Follow-up will be guided by ongoing changes in her health status and scheduled screenings. Orders: Orders AMB Hemoglobin A1c Today E11.9 - Type 2 diabetes mellitus without complications Influenza [id number] Immunization Today Z23 - Encounter for immunization Pneumococcal 20 Immunization Today Z23 - Encounter for immunization Comprehensive [place]. Panel Fast 4 Months I10 - Essential (primary) hypertension XR DEXA axial skeleton 3 Months Z78.0 - Asymptomatic menopausal state Lipid Panel 4 Months E78.5 - Hyperlipidemia, unspecified Microalbumin, Random (w Creat) 4 Months R80.9 - Proteinuria, unspecified Vitamin D 25-OH Total 4 Months E55.9 - Vitamin D deficiency, unspecified Medications: New tramadol 50 mg PO BID 30 days PRN 40 tabs 0RF pain Refilled calcium carbonate-vitamin D3 600 mg-10 mcg (400 unit) 1 tab PO BID 90 days 180 tabs 1RF Discontinued gabapentin Discontinued Reason: Patient Completed Course 100 mg PO BEDTIME 30 days 30 caps 1RF ibuprofen Discontinued Reason: Patient Completed Course 800 mg PO Q8H 90 days 270 tabs 1RF Patient Instructions: - Continue atorvastatin and lisinopril as prescribed. - Take Actos for blood sugar control as directed. - Receive the pneumonia vaccine today. - Schedule bone densitometry this year. - Report any new or worsening symptoms promptly. - Use zolmitriptan as needed for migraines.
== END 2024-06-02 08:17 | disposition home or self-care (01) ==
PROVIDERS: PCP Internal Medicine; Visit Provider Internal Medicine
DX: I10 Essential (primary) hypertension (principal); G43.909 Migraine, unspecified, not intractable, without status migrainosus; M85.80 Other specified disorders of bone density and structure, unspecified site; E11.9 Type 2 diabetes mellitus without complications; K21.9 Gastro-esophageal reflux disease without esophagitis; E78.49 Other hyperlipidemia; Z23 Encounter for immunization

== ENCOUNTER → 2024-06-02 07:37 | Outpatient (BNVA) | payer OTHER, SELFPAY | PROVIDERS: PCP Internal Medicine; Visit Provider Internal Medicine | DX: Z23 Encounter for immunization (principal); I10 Essential (primary) hypertension; G43.909 Migraine, unspecified, not intractable, without status migrainosus; M85.80 Other specified disorders of bone density and structure, unspecified site; E11.9 Type 2 diabetes mellitus without complications; K21.9 Gastro-esophageal reflux disease without esophagitis; E78.49 Other hyperlipidemia | CPT/HCPCS: 83036; 90471; 90677; 96127; 99212 ==

== ENCOUNTER 2024-08-28 08:33 | Outpatient (AMB) | payer OTHER, SELFPAY ==
--- NOTE | 2024-08-28 09:00 | MHC.PC.OV ---
Vital Signs 08/28/24 09:01 Height 5 ft 5 in Weight 171 lb BMI 28.5 BP 136/70 Blood Pressure Location Lt brachial Position Sitting Intake Visit Reasons: Annual Exam Intake Note: Patient here for an annual physical exam Repairer Sash And Door Required: Yes Repairer Sash And Door Language: Lead Architect Name: Madhavi Mujica MD Information Interpreted: non-clinical & clinical Accompanied by: Self / Same As Patient Allergies No Known Allergies Allergy (Verified 08/28/24 09:13) Medication List - Last Reconciled 08/28/24 by Madhavi Mujica MD atorvastatin 80 mg PO BEDTIME 90 days blood sugar diagnostic (FreeStyle Lite Strips) Use 1 test strip once a day blood sugar diagnostic (OneTouch Verio test strips) Use 1 test strip once a day blood-glucose meter (FreeStyle [place] Lite kit) As directed blood-glucose meter (OneTouch Verio Flex Meter) As directed calcium carbonate-vitamin D3 600 mg-10 mcg (400 unit) 1 tab PO BID 90 days ezetimibe 10 mg PO DAILY 90 days lancets (iCrimefighterTouch UltraSoft 2 Lancet) Use 1 lancet once a day lisinopril 10 mg PO DAILY 90 days omeprazole 20 mg PO DAILY 90 days pioglitazone 45 mg PO DAILY 90 days sumatriptan succinate 25 mg PO Q2-4H PRN 30 days tramadol 50 mg PO BID PRN 30 days trazodone 50 mg PO BEDTIME PRN 90 days Tobacco use date assessed: 06/02/24 Fall risk assessment: No Falls in past year Last assessed Fall Risk: 08/28/24 Dental Screening Dental Screen Date: 06/02/24 HPI HPI Comments History of Present Illness Details The patient is a 73-year-old female presenting for her annual physical examination. Her medical history includes several chronic conditions. She has diabetes mellitus, which is currently well-controlled with a Hemoglobin A1c of 5.5, last measured in May. She has been diagnosed with osteopenia; a bone densitometry conducted in 2022 confirmed this, and she is scheduled for a follow-up densitometry on September 02. Additionally, the patient has hyperlipidemia, which is managed with atorvastatin 80 mg and ezetimibe 10 mg. Her blood pressure is being controlled with lisinopril 10 mg, indicating essential hypertension. She also experiences gastroesophageal reflux disease, managed with omeprazole, and suffers from migraine headaches, treated with sumatriptan. She has degenerative joint disease in her knee, for which tramadol was prescribed; however, she reports the medication is ineffective in alleviating her pain. Past medical history includes a tubal ligation for family planning. There is no family history of hypertension; her mother had diabetes, but her father did not experience major health issues. The patient denies tobacco, alcohol use, and drug allergies. She also declines a colonoscopy and any at-home screening tests for colorectal cancer, expressing no specific reasons for her refusal. - Diabetes: Hemoglobin A1c 5.5 in May; well-controlled - Osteopenia: Densitometry scheduled for September 02, 2022 - Hyperlipidemia: Managed with atorvastatin 80 mg and ezetimibe 10 mg - Immunizations: Updated pneumococcal vaccine - Breast Cancer Screening: Mammography completed last year; scheduled for September this - Eye examination: Last examination in April 2023 - Lifestyle: No tobacco or alcohol use PFSH Medical History Migraines Left knee pain Osteopenia Essential hypertension Postmenopausal Insomnia Polyarthralgia Familial hyperlipidemia GERD (gastroesophageal reflux disease) Diabetes mellitus Surgical History History of shoulder surgery History of tubal ligation Family History Father No problems noted. Mother Diabetes Brother Diabetes Throat cancer Social History Housing: Apartment Alcohol intake: never Patient Tobacco Use Status: Never used Tobacco e-Cigarette/Vaping Use: Never Used Second Hand Smoke Exposure: No service: No Current occupational status: disabled Current occupational exposures/hazards: No Cognitive needs: No Hearing needs: No Vision needs: Yes Questionnaire PHQ-9 Over the last 2 weeks, how often have you been bothered by any of the following problems? 1. Little interest or pleasure in doing things: not at all 2. Feeling down, depressed, or hopeless: not at all 3. Trouble falling or staying asleep, or sleeping too much: not at all 4. Feeling tired or having little energy: not at all 5. Poor appetite or overeating: not at all 6. Feeling bad about yourself - or that you are a failure or have let yourself or your family down: not at all 7. Trouble concentrating on things, such as reading the newspaper or watching television: several days 8. Moving or speaking so slowly that other people could have noticed. Or the opposite - being so fidgety or restless that you have been moving around a lot more than usual: not at all 9. Thoughts that you would be better off or of hurting yourself in some way: not at all Total score: 1 Depression Screening Interpretation: Negative Depression Screening Done: Yes 88211 - PHQ-9 Billing: Yes Source: Developed by Drs. Nahid Garcia, Alexia Pollock, Flavio Torrez and colleagues, with an educational em from [employer]. Thrive Questionnaire Date Thrive assessed: 06/02/24 I am a: Patient What is your living situation today?: I have a steady place to live Within the past 12 months, did the food you bought not last and you didn't have the money to get more?: Never true Within the past 12 months, did you worry whether your food would run out before you got money to buy more?: Never true Do you have trouble paying for medicines?: No Do you have trouble getting transportation to medical appointments?: No Do you have trouble paying your heating and electricity bill?: No Do you have trouble taking care of your child, family member or friend?: No Do you have trouble with day-to-day activities such as bathing, preparing meals, shopping, managing finances, etc.?: No Are you currently unemployed and looking for a job?: Yes Are you interested in more education?: No Please select the resources that you would like help with: None Currently or been in a relationship where the following occur: No concerns reported THRIVE Score: 0 AUDIT C Alcohol Use Questionnaire (AUDIT-C) 1. How often do you have a drink containing alcohol?: Never Total Score: 0 SUSAN-7 AMB Questionnaire SUSAN-7 Date SUSAN - 7 assessed: 06/02/24 Feeling nervous, anxious, or on edge: 0 = Not at all Not being able to stop or control worryin = Not at all Worrying too much about different things: 0 = Not at all Trouble relaxin = Not at all Being so restless that it is hard to sit still: 0 = Not at all Becoming easily annoyed or irritable: 0 = Not at all Feeling afraid as if something awful might happen: 0 = Not at all Total SUSAN-7 score (0-4 normal; 5-9 mild; 10-14 moderate; 15-21 severe): 0 Source: Developed by Drs. Nahid Garcia, Alexia Pollock, Flavio Torrez and colleagues, with an educational em from [employer]. SUSAN-7 Assessment Billing SUSAN-7 Assessment Tool: SUSAN-7 Assessment 28644 Review of Systems Const All systems reviewed & are unremarkable except as noted in HPI and below Card Denies chest pain at rest, Denies chest pain with activity, Denies edema, Denies irregular heart rhythm, Denies claudication, Denies orthopnea, Denies paroxysmal nocturnal dyspnea and Denies slow heart rate Physical exam (Primary Care) Vital Signs: Last Vital Signs BP 136/70 08/28/24 09:01 BMI result Body Mass Index 28.5 Tobacco/Smoking Status: Tobacco use Status Tobacco use date assessed 06/02/24 08/28/24 09:08 Patient Tobacco Use Status Never used Tobacco 08/28/24 09:08 e-Cigarette/Vaping Use Never Used 08/28/24 09:08 PHQ-9: PHQ-9 Score PHQ-9: Total score 1 08/28/24 09:08 Depression Screening Interpretation: Negative Thrive Assessment: Date of Thrive Assessment Date Thrive assessed 06/02/24 08/28/24 09:08 Currently or been in a relationship where the following occur: No concerns reported [facility] Head: Yes normal to inspection, Yes normocephalic and Yes atraumatic Ears: external ears normal Eyes General: appearance normal, both eyes and all related structures Eyelids: Yes eyelids normal Conjunctivae: conjunctivae normal Neck Neck: Yes normal visual inspection and Yes supple Resp Effort & Inspection: normal respiratory effort Auscultation: clear to auscultation bilaterally Cardio Jugular venous distension: no JVD Rate: regular rate Rhythm: regular rhythm Heart sounds: S1 normal heart sound present and S2 normal heart sound present GI Inspection: Yes normal to inspection Palpation (GI): Soft to palpation and nontender Auscultation: normal bowel sounds Skin General skin exam: no rashes or lesions noted Neuro General: no focal motor deficits Extrem General: Yes full ROM Psych Appearance: grossly normal Coding Level of Care Code Est Pt Prev Care >65y(72557) Diagnoses Physical exam Z00.00 Type 2 diabetes mellitus without complication, without long-term current use of insulin E11.9 Diabetes mellitus type: type 2 Diabetes mellitus truck terminal manager insulin use: without truck terminal manager use Diabetes mellitus complication status: without complication Additional Codes PHQ-9 - 07795 - PHQ-9 Billing: Yes ([id number]) SUSAN-7 Assessment Billing - SUSAN-7 Assessment Tool: SUSAN-7 Assessment 77871 ([id number]) Time Spent (min) 30 Assessment & Plan Assessment & Plan (1) Physical exam: Code(s): Z00.00 - Encounter for general adult medical examination without abnormal findings Category: Medical (2) Diabetes mellitus: Code(s): E11.9 - Type 2 diabetes mellitus without complications Category: Medical Qualifiers: Diabetes mellitus type: type 2 Diabetes mellitus truck terminal manager insulin use: without senior care use Diabetes mellitus complication status: without complication Qualified Code(s): E11.9 - Type 2 diabetes mellitus without complications Plan For her well-controlled diabetes, the patient will maintain her current medication regimen, with follow-up labs in four months. Osteopenia monitoring will continue with a scheduled bone densitometry to guide future treatment. Hyperlipidemia management with atorvastatin and ezetimibe continues to target lipid control. GERD is treated with omeprazole, which remains effective. Further evaluation may be needed to address ineffective pain management of her degenerative joint disease of the knee with tramadol. The patient is not interested in colorectal cancer screening at this time, and reinforcements on screening importance will be revisited in follow-up care. Follow-up is scheduled for September, and further laboratory evaluation will occur then. Patient was informed and verbally consented to the use of an ambient scribe for clinic note documentation during this visit. I discussed the management and treatment options for the patient's chronic conditions, including diabetes, hyperlipidemia, osteopenia, and hypertension. We reviewed her medications, emphasizing the importance of continued treatment adherence. The risks and benefits of these therapies were covered, with attention to the need for regular follow-up and monitoring. The patient declined colorectal cancer screening again, and I explained the potential benefits of these tests. Current medication regimens appear effective for most conditions, except for degenerative joint disease, which requires reevaluation. I will see her in follow-up in September to reassess her conditions. Orders: Orders Lipid Panel 4 Months E78.5 - Hyperlipidemia, unspecified Microalbumin, Random (w Creat) 4 Months R80.9 - Proteinuria, unspecified Vitamin B12 and Folate 4 Months E53.8 - Deficiency of other specified B group vitamins Vitamin D 25-OH Total 4 Months E55.9 - Vitamin D deficiency, unspecified Comprehensive [place]. Panel Fast 4 Months Z00.00 - Encounter for general adult medical examination without abnormal findings Patient Instructions: - Continue prescribed medications as directed: atorvastatin, ezetimibe, lisinopril, omeprazole, sumatriptan. - Attend scheduled bone densitometry on September 02, 2022, and mammography in September. - Return for lab tests in four months. - Follow up in September for reassessment of ongoing health and wellness. - Contact the office if experiencing any new or worsening symptoms.
[2024-08-28 09:01] VITALS: BP 136/70; BMI 28.5
--- OUTSIDE RECORDS SUMMARY | 2024-08-28 09:01 | XMS_ITS | Clinical Summary ---
Author Organization [employer] Address [address] [place] [address] [address] [place] [address] Care Team Providers Care Marble Chip Terrazzo Worker Name Role Phone Unavailable Primary Care Provider Unavailabl e Immunizations Name Administration Dates Next Due Influenza injectable quadrivalent preservative f ree 04/23/2023 Influenza, High Dose Seasonal, Preservative Free 02/07/2024 Pneumococcal Conjugate PCV 20 07/03/2023 RSV Bivalent 07/03/2023 Zoster, Recombinant 09/18/2023,07/17/2023 Social History Tobacco Use Types Packs/Day Years Used Date Smoking Tobacco: Never Assessed Comments Unknown Sex and Gender Information Value Date Recorded Sex Assigned at Female 03/13/2022 10:22 AM EDT Legal Sex Female 10:22 AM EDT Gender Identity Female 06/28/2023 1:49 PM EST Sexual Orientation Don't know 06/28/2023 1: 50 PM EST Plan of Treatment Health Maintenance Due Date Last Done Comments CT Colonography 1952 Colonoscopy 1952 Colorectal Cancer Screening 1952 Depression Screening 1952 FIT DNA/Cologuard 1952 FIT 1952 FOBT 1952 SDOH Screening 1952 Sigmoidoscopy 1952 Alcohol/Substance Use Screening 1964 Tobacco Screening 1964 Hepatitis C Screening 1970 DTaP/Tdap/Td Vaccines (1 - Tdap) 09/06/1971 Mammogram 1992 COVID-19 Vaccine (3 - 2023-2 5 season) 2024 06/28/2021, 09/22/2020 Pneumococcal Vaccine: 50+ Years Completed 07/03/2023 RSV Patients and Patients Aged 60 years or older Completed 07/03/2023 Zoster Vaccines Completed 09/18/2023, 07/17/2023 Influenza Vaccine Completed 02/07/2024, 04/23/2023 HIB Vaccines Aged Out No longer eligi ble based on patient's age to complete this topic HPV Vaccines Aged Out No longer eligi ble based on patient's age to complete this topic Hepatitis A Vaccines Aged Out No long er eligible based on patient's age to complete this topic Hepatitis B Vaccines Aged Out No long er eligible based on patient's age to complete this topic IPV Vaccines Aged Out No longer eligi ble based on patient's age to complete this topic Meningococcal Vaccine Aged Out No jessica julio eligible based on patient's age to complete this topic RSV under 20 months Aged Out No longe r eligible based on patient's age to complete this topic Rotavirus Vaccines Aged Out No longer eligible based on patient's age to complete this [place] [id number]
== END 2024-08-28 09:24 | disposition home or self-care (01) ==
LOC: HO.HMCH 08:34
PROVIDERS: PCP Internal Medicine; Visit Provider Internal Medicine
DX: Z00.00 Encounter for general adult medical examination without abnormal findings (principal); E11.9 Type 2 diabetes mellitus without complications

== ENCOUNTER → 2024-08-28 08:33 | Outpatient (BNVA) | payer OTHER, SELFPAY | PROVIDERS: PCP Internal Medicine; Visit Provider Internal Medicine | DX: Z00.00 Encounter for general adult medical examination without abnormal findings (principal); E11.9 Type 2 diabetes mellitus without complications; M85.80 Other specified disorders of bone density and structure, unspecified site; E78.5 Hyperlipidemia, unspecified; K21.9 Gastro-esophageal reflux disease without esophagitis; I10 Essential (primary) hypertension; Z79.899 Other long term (current) drug therapy | CPT/HCPCS: 96127; 99397 ==

== ENCOUNTER 2024-09-02 08:25 | Outpatient (REF) | payer OTHER, SELFPAY ==
--- OUTSIDE RECORDS SUMMARY | 2024-09-02 08:45 | XMS_ITS | Clinical Summary ---
Author Organization [employer] Address [address] [place] [address] [address] [place] [address] Care Team Providers Care Ethanol Quality Leader Name Role Phone Unavailable Primary Care Provider [...]
== END 2024-09-02 08:26 | disposition home or self-care (01) ==
LOC: HO.MAMMO 08:25
PROVIDERS: PCP Internal Medicine; Visit Provider Internal Medicine
DX: Z13.820 Encounter for screening for osteoporosis (principal); Z78.0 Asymptomatic menopausal state
CPT/HCPCS: 77080

== ENCOUNTER → 2024-09-02 08:45 | Outpatient (BNV) | payer OTHER, SELFPAY | PROVIDERS: PCP Internal Medicine; Visit Provider Radiology Diagnostic Radiology | DX: E28.39 Other primary ovarian failure (principal) | CPT/HCPCS: 77080 ==

== ENCOUNTER 2024-09-17 08:06 | Outpatient (REF) | payer OTHER, SELFPAY | END 2024-09-17 08:07 | disposition home or self-care (01) | LOC: HO.MAMMO 08:06 | PROVIDERS: PCP Internal Medicine; Visit Provider Internal Medicine | DX: Z12.31 Encounter for screening mammogram for malignant neoplasm of breast (principal) | CPT/HCPCS: 77063; 77067 ==

== ENCOUNTER → 2024-09-17 08:30 | Outpatient (BNV) | payer OTHER, SELFPAY | PROVIDERS: PCP Internal Medicine; Visit Provider Internal Medicine | DX: Z12.31 Encounter for screening mammogram for malignant neoplasm of breast (principal) | CPT/HCPCS: 77063; 77067 ==

== ENCOUNTER 2025-01-14 07:47 | Outpatient (REF) | payer OTHER, SELFPAY ==
--- OUTSIDE RECORDS SUMMARY | 2025-01-14 07:56 | XMS_ITS | Clinical Summary ---
Author Organization [employer] Address [address] [place] [address] [address] [place] [address] Care Team Providers Care Hosiery Operator Name Role Phone Unavailable Primary Care Provider Unavailabl e Immunizations Immunization Administration Dates Next Due Influenza injectable quadrivalent [...] - 2023-2 5 season) 2024 06/28/2021, 09/22/2020 Influenza Vaccine (#1) 2025 , 04/23/2023 Pneumococcal Vaccine: 50+ Years Completed 07/03/2023 RSV Patients and Patients Aged 60 years or older Completed 07/03/2023 Zoster Vaccines Completed 09/18/2023, 07/17/2023 HIB Vaccines Aged Out No longer eligi [...] patient's age to complete this topic Meningococcal B Vaccine Aged Out No l onger eligible based on patient's age to complete this topic Meningococcal Vaccine Aged Out No jessica julio eligible based on patient's age to complete this topic RSV under 20 months Aged Out No longe r eligible based on patient's age to complete this topic Rotavirus Vaccines Aged Out No longer eligible based on patient's age to complete this topic Insurance [facility] [place] [address]
[2025-01-14 09:24] LABS: Alanine Aminotransferase 24 U/L (0-31); Albumin Level 4.3 g/dL (3.5-5.0); Alkaline Phosphatase 61 U/L (39-117); Anion Gap 9 (12-20); Aspartate Amino Transferase 26 U/L (5-31); Blood Urea Nitrogen 17 mg/dL (9-16); Calcium 9.3 mg/dL (8.4-10.2); Carbon Dioxide 30 mmol/L (22-29); Chloride 107 mmol/L (96-108); Cholesterol 135 mg/dL (<200); Estimated Glomerular Filt Rate > 60; HDL Cholesterol 42 mg/dL (>40); Potassium 3.8 mmol/L (3.3-5.1); Sodium 142 mmol/L (135-145); Total Protein 7.0 g/dL (6.5-8.0); Triglycerides 91 mg/dL (<150)
[2025-01-14 09:48] LABS: Folate 8.7 ng/mL (> or = 4.0); Vitamin B12 220 pg/mL (200-900)
[2025-01-14 09:51] LABS: Microalbum/Creatinine Ratio Ur 25.7 ug/mg cr (<30)
== END 2025-01-14 07:48 | disposition home or self-care (01) ==
LOC: HO.LAB 07:47
PROVIDERS: PCP Internal Medicine; Visit Provider Internal Medicine
DX: Z00.00 Encounter for general adult medical examination without abnormal findings (principal); I10 Essential (primary) hypertension; E55.9 Vitamin D deficiency, unspecified; E78.5 Hyperlipidemia, unspecified; E53.8 Deficiency of other specified B group vitamins; R80.9 Proteinuria, unspecified
CPT/HCPCS: 36415; 80053; 80061; 82043; 82306; 82570; 82607; 82746

== ENCOUNTER 2025-01-20 09:12 | Outpatient (AMB) | payer OTHER, SELFPAY ==
--- NOTE | 2025-01-20 09:22 | MHC.PC.OV ---
Vital Signs 01/20/25 09:23 Height 5 ft 5 in Weight 174 lb BMI 29.0 BP 132/66 Blood Pressure Location Lt brachial Position Sitting Pulse 67 Pulse Source Pulse Oximeter Temp 97.1 F Temp Source Temporal Artery Scan Pulse Oximetry (%) 98 Oxygen Delivery Method Room Air Intake Visit Reasons: DM Intake Note: Patient is here to follow up on DM. Sheeter Waxer Operator Required: Yes Sheeter Waxer Operator Language: Guamanian Information Interpreted: non-clinical & clinical Land Degradation Analyst: Not Required per policy Accompanied by: Self / Same As Patient Allergies No Known Allergies Allergy (Verified 01/20/25 09:55) Medication List - Last Reconciled 01/20/25 by Madhavi Mujica MD atorvastatin 80 mg PO BEDTIME 90 days blood sugar diagnostic (FreeStyle Lite Strips) Use 1 test strip once a day blood sugar diagnostic (OneTouch Verio test strips) Use 1 test strip once a day blood-glucose meter (FreeStyle [place] Lite kit) As directed blood-glucose meter (OneTouch Verio Flex Meter) As directed calcium carbonate-vitamin D3 600 mg-10 mcg (400 unit) 1 tab PO BID 90 days diclofenac sodium 1% (Arthritis Pain (diclofenac)) 2 grams topical QID 30 days ezetimibe 10 mg PO DAILY 90 days ibuprofen 800 mg PO Q8H PRN 30 days lancets (CotapTouch UltraSoft 2 Lancet) Use 1 lancet once a day lisinopril 10 mg PO DAILY 90 days omeprazole 20 mg PO DAILY 90 days pioglitazone 45 mg PO DAILY 90 days sumatriptan succinate 25 mg PO Q2-4H PRN 30 days trazodone 50 mg PO BEDTIME PRN 90 days Tobacco use date assessed: 01/20/25 Fall risk assessment: No Falls in past year Last assessed Fall Risk: 01/20/25 Dental Screening Dental Screen Date: 06/02/24 HPI HPI Comments History of Present Illness Details The patient is a 74-year-old female presenting with diabetes mellitus and hyperlipidemia. She is currently on pioglitazone 45 mg for diabetes management and atorvastatin 80 mg along with ezetimibe 10 mg for cholesterol control. Her blood pressure is well-controlled with lisinopril 10 mg. The patient has a history of osteopenia, confirmed by a bone density scan conducted earlier this year. She is taking calcium with vitamin D as a preventative measure, with the next bone density scan scheduled for 2026. Her recent laboratory results show an LDL cholesterol level of 75 mg/dL, slightly above the target of 70 mg/dL, but considered acceptable by her physician. Renal and liver functions are normal, and vitamin D levels are within normal limits. However, her vitamin B12 levels are slightly low, prompting a repeat test in four months. [facility] Medical History (Updated 01/20/25 @ 10:03 by Madhavi Mujica MD) Migraines Left knee pain Osteopenia Essential hypertension Postmenopausal Insomnia Polyarthralgia Familial hyperlipidemia GERD (gastroesophageal reflux disease) Diabetes mellitus Surgical History History of shoulder surgery History of tubal ligation Family History Father No problems noted. Mother Diabetes Brother Diabetes Throat cancer Social History Housing: Apartment Alcohol intake: never Patient Tobacco Use Status: Never used Tobacco e-Cigarette/Vaping Use: Never Used Second Hand Smoke Exposure: No service: No Current occupational status: disabled Current occupational exposures/hazards: No Cognitive needs: No Hearing needs: No Vision needs: Yes Questionnaire Thrive Questionnaire Date Thrive assessed: 08/28/24 I am a: Patient What is your living situation today?: I have a steady place to live Within the past 12 months, did the food you bought not last and you didn't have the money to get more?: Never true Within the past 12 months, did you worry whether your food would run out before you got money to buy more?: Never true Do you have trouble paying for medicines?: No Do you have trouble getting transportation to medical appointments?: No Do you have trouble paying your heating and electricity bill?: No Do you have trouble taking care of your child, family member or friend?: No Do you have trouble with day-to-day activities such as bathing, preparing meals, shopping, managing finances, etc.?: No Are you currently unemployed and looking for a job?: Yes Are you interested in more education?: No Please select the resources that you would like help with: None Currently or been in a relationship where the following occur: No concerns reported THRIVE Score: 0 SUSAN-7 AMB Questionnaire SUSAN-7 Date SUSAN - 7 assessed: 06/02/24 Source: Developed by Drs. Nahid Garcia, Alexia Pollock, Flavio Torrez and colleagues, with an educational em from [employer]. Review of Systems Const All systems reviewed & are unremarkable except as noted in HPI and below Card Denies chest pain at rest, Denies chest pain with activity, Denies edema, Denies irregular heart rhythm, Denies claudication, Denies dyspnea, Denies dyspnea on exertion, Denies orthopnea, Denies paroxysmal nocturnal dyspnea and Denies slow heart rate Resp Denies cough, Denies dyspnea and Denies dyspnea on exertion Neuro Denies lack of coordination Physical exam (Primary Care) Vital Signs: Last Vital Signs Temp 97.1 F 01/20/25 09:23 Pulse 67 01/20/25 09:23 BP 132/66 01/20/25 09:23 Pulse Ox 98 01/20/25 09:23 Oxygen Delivery Method Room Air 01/20/25 09:23 BMI result Body Mass Index 29.0 Tobacco/Smoking Status: Tobacco use Status Tobacco use date assessed 01/20/25 01/20/25 09:30 Patient Tobacco Use Status Never used Tobacco 01/20/25 09:30 e-Cigarette/Vaping Use Never Used 01/20/25 09:30 Thrive Assessment: Date of Thrive Assessment Date Thrive assessed 08/28/24 01/20/25 09:30 Currently or been in a relationship where the following occur: No concerns reported Resp Effort & Inspection: normal respiratory effort Auscultation: clear to auscultation bilaterally Cardio Jugular venous distension: no JVD Rate: regular rate Rhythm: regular rhythm Heart sounds: S1 normal heart sound present and S2 normal heart sound present Extrem General: Yes full ROM Results AMB Hemoglobin A1c AMB Hemoglobin A1c 5.4 % Last Edit by DENISSE Hernandez on 01/20/25 09:39 Results Reviewed Results Reviewed: Laboratory Last Values Hgb A1c (Clinic) 5.4 % (4.0-6.0) 01/20/25 09:22 Coding Level of Care Code Est Pt Level 4 (69122) Complex EM visit Add On G2211 Diagnoses Type 2 diabetes mellitus without complication, without long-term current use of insulin E11.9 Diabetes mellitus type: type 2 Diabetes mellitus residential insulin use: without long lines operator use Diabetes mellitus complication status: without complication Essential hypertension I10 Osteopenia, unspecified location M85.80 Osteopenia location: unspecified Gastroesophageal reflux disease, unspecified whether esophagitis present K21.9 Esophagitis presence: esophagitis presence not specified Familial hyperlipidemia E78.49 Time Spent (min) 23 Assessment & Plan Assessment & Plan (1) Diabetes mellitus: Code(s): E11.9 - Type 2 diabetes mellitus without complications Category: Medical Qualifiers: Diabetes mellitus type: type 2 Diabetes mellitus residential insulin use: without residential use Diabetes mellitus complication status: without complication Qualified Code(s): E11.9 - Type 2 diabetes mellitus without complications (2) Essential hypertension: Code(s): I10 - Essential (primary) hypertension Category: Medical (3) Osteopenia: Code(s): M85.80 - Other specified disorders of bone density and structure, unspecified site Category: Medical Qualifiers: Osteopenia location: unspecified Qualified Code(s): M85.80 - Other specified disorders of bone density and structure, unspecified site (4) GERD (gastroesophageal reflux disease): Code(s): K21.9 - Gastro-esophageal reflux disease without esophagitis Category: Medical Qualifiers: Esophagitis presence: esophagitis presence not specified Qualified Code(s): K21.9 - Gastro-esophageal reflux disease without esophagitis (5) Familial hyperlipidemia: Code(s): E78.49 - Other hyperlipidemia Category: Medical Plan Plan 1. Type 2 diabetes mellitus without complications E11.9 HCC 19 The patient is currently managed with pioglitazone 45 mg daily. 2. Hyperlipidemia, unspecified E78.5 The patient is on atorvastatin 80 mg and ezetimibe 10 mg for cholesterol management. Her LDL cholesterol is slightly above the target, but no changes in medication were deemed necessary. 3. Other specified disorders of bone density and structure, unspecified site M85.80 The patient is taking calcium with vitamin D, with a follow-up bone density scan scheduled for 2026. 4. Essential (primary) hypertension I10 Blood pressure is well-controlled with lisinopril 10 mg daily. 5. Gastro-esophageal reflux disease without esophagitis K21.9 The patient is managed with omeprazole as needed for symptoms. Orders: Orders Parietal Cell Antibody 4 Months E53.8 - Deficiency of other specified B group vitamins AMB Hemoglobin A1c Today E11.9 - Type 2 diabetes mellitus without complications Intrinsic Factor Antibodies 4 Months E53.8 - Deficiency of other specified B group vitamins Lipid Panel 4 Months E78.5 - Hyperlipidemia, unspecified Microalbumin, Random (w Creat) 4 Months R80.9 - Proteinuria, unspecified Vitamin B12 and Folate 4 Months E53.8 - Deficiency of other specified B group vitamins Vitamin D 25-OH Total 4 Months E55.9 - Vitamin D deficiency, unspecified Comprehensive [place]. Panel Fast 4 Months E11.9 - Type 2 diabetes mellitus without complications
[2025-01-20 09:23] VITALS: BP 132/66; PULSE 67; TEMP 36.2; O2SAT 98; BMI 29.0
--- OUTSIDE RECORDS SUMMARY | 2025-01-20 10:35 | XMS_ITS | Clinical Summary ---
Author Organization [employer] Address [address] [place] [address] [address] [place] [address] Care Team Providers Care Taxi Truck Driver Name Role Phone Unavailable Primary Care Provider [...] 09/06/1969 Mammogram 1992 COVID-19 Vaccine (3 - 2024-2 6 season) 2025 06/28/2021, 09/22/2020 Influenza Vaccine (#1) 2025 , [...] patient's age to complete this topic Insurance [facility]PLETE
== END 2025-01-20 10:08 | disposition home or self-care (01) ==
LOC: HO.HMCH 09:12
PROVIDERS: PCP Internal Medicine; Visit Provider Internal Medicine
DX: E11.9 Type 2 diabetes mellitus without complications (principal); I10 Essential (primary) hypertension; M85.80 Other specified disorders of bone density and structure, unspecified site; K21.9 Gastro-esophageal reflux disease without esophagitis; E78.49 Other hyperlipidemia

== ENCOUNTER → 2025-01-20 09:12 | Outpatient (BNVA) | payer OTHER, SELFPAY | PROVIDERS: PCP Internal Medicine; Visit Provider Internal Medicine | DX: E11.9 Type 2 diabetes mellitus without complications (principal); E78.5 Hyperlipidemia, unspecified; M85.80 Other specified disorders of bone density and structure, unspecified site; I10 Essential (primary) hypertension; K21.9 Gastro-esophageal reflux disease without esophagitis; E78.49 Other hyperlipidemia; E55.9 Vitamin D deficiency, unspecified; E53.8 Deficiency of other specified B group vitamins; R80.9 Proteinuria, unspecified | CPT/HCPCS: 83036; 99212 ==